=== PATIENT | female | born 1985 | race African-American/Black ===

== ENCOUNTER 2016-03-15 07:45 | Emergency (ER) | payer OTHER ==
[2016-03-15 08:14] VITALS: BP 100/65
--- NOTE | 2016-03-15 08:23 | ED ---
Abdominal Pain/Female - HPI Summary HPI Summary: 31yo female presents with vaginal cramping that started a week ago, and had a home test 3-4 days ago which was positive. , child is now 18m old. She additionally had an years ago which resulted in vaginal scar tissue. She had a secondary to the scar tissue with her child 18m ago. Patient with slightly reddish tinted urine with some hesitancy and dysuria. No vaginal bleeding or discharge. She has some lower abdominal cramping. + nausea and vomiting about once or twice a day. Have had difficulty with eating, but has been taking some fluids. History of . Patient is A+ blood type. - History of Current Complaint Chief Complaint: EDAbdPain Stated Complaint: ??WKS PREG/CRAMPING Pain Intensity: 9 Allergies/Adverse Reactions: Allergies Allergy/AdvReac Type Severity Reaction Status Date / Time Erythromycin Allergy Unknown Rash Verified 03/14/16 14:30 PMH/Surg Hx/FS Hx/Imm Hx Previously Healthy: Yes Endocrine/Hematology History: Denies: Hx Diabetes Cardiovascular History: Denies: Hx Hypertension History: Denies: Hx Renal Disease Psychiatric History: Reports: Hx Anxiety - severe,not taking meds,sees TCMHD, Hx Depression, Hx Community Mental Health Tx - TCMH - Not currently, Other Psychiatric Issues/Disorders - HX Mental health issues Denies: Hx Attention Deficit Hyperactivity Disorder, Hx Eating Disorder, Hx Panic Disorder, Hx Post Traumatic Stress Disorder, Hx Inpatient Treatment, Hx Schizophrenia, Hx Bipolar Disorder, Hx Suicide Attempt, Hx of Violent Episodes Against Others, Hx Substance Abuse - Surgical History Surgery Procedure, Year, and Place: - Immunization History Date of Tetanus Vaccine: not up to date Infectious Disease History: Yes Infectious Disease History: Denies: Hx Clostridium Difficile, Hx Hepatitis, Hx Human Immunodeficiency Virus (HIV), Hx of Known/Suspected MRSA, Hx Shingles, Hx Tuberculosis, Hx Known/ Suspected VRE, Hx Known/Suspected VRSA, History Other Infectious Disease, Traveled Outside the [place] in Last 30 Days - Family History Known Family History: Positive: Other - migraines Negative: Cardiac Disease Family History: R & n/C - Social History Lives: Alone Alcohol Use: None Hx Substance Use: Yes Substance Use Type: Reports: Marijuana Substance Use Comment - Amount & Last Used: last 4 days ago Hx Tobacco Use: Yes Smoking Status (MU): Light Every Day Tobacco Smoker Have You Smoked in the Last Year: No Review of Systems Positive: Vomiting, Nausea Positive: dysuria All Other Systems Reviewed And Are Negative: Yes Physical Exam - Summary Physical Exam Summary: GENERAL: Well appearing, No acute distress, well nourished. HEENT: Head atraumatic/normocephalic, EOMI/JOSE JUAN, conjunctiva clear, TMs appear without erythema/bulging, Nose appears without congestion or drainage, Throat uvula midline without exudates, erythema, or tonsillar edema. NECK: Supple with normal range of motion during conversation. CARDIAC: RRR without murmur, rub or gallop LUNGS: Clear to auscultation without wheezing, rales or rhonchi. Normal respiratory effort. Breath sounds are symmetrical and equal. ABDOMEN: Abdomen is soft and non-tender. No cva tenderness PELVIC: Normal external genitalia. Vagina without mass or lesion. No discharge or bleeding. Cervix closed. No CMT. Uterus non tender without mass. Adnexa non tender without mass. MUSCULOSKELETAL: Moves all extremities well. There is no peripheral edema. Neg homans. SKIN: Warm and dry, skin color reflects adequate perfusion. NEUROLOGICAL: Patient is alert and appropriate. Cranial nerves are grossly intact. PSYCHIATRIC: Appropriate affect. Vital Signs On Initial Exam: Initial Vitals Temp Pulse Resp BP Pulse Ox 98.0 F 63 16 100/65 100 03/15/16 07:47 03/15/16 07:47 03/15/16 07:47 03/15/16 07:47 03/15/16 07:47 Diagnostics - Vital Signs Vital Signs Temp Pulse Resp BP Pulse Ox 03/15/16 07:47 98.0 F 63 16 100/65 100 - Laboratory Result Diagrams: 03/15/16 08:52 03/15/16 08:52 Lab Statement: Any lab studies that have been ordered have been reviewed, and results considered in the medical decision making process. - Ultrasound No standard instances Ultrasound Interpretation: Positive (See Comments) - single live intrauterine gestation with crown-rump length yielding a gestational age of 6weeks and 2 days. Likely very small subchorionic hemorrhage measuring 2mm in thickness Incidentally noted is at least on engorged left periuterine vein measuing 1 cm in diameter. 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 Ultrasound Interpretation Completed By: Radiologist Re-Evaluation - Re-Evaluation First Eval Change: Improved - No complaints, but wants to leave immediately after her u/s. Discussed the importance of pelvic exam, labs and u/s result from radiologist. Second Eval Change: Unchanged - Patient requesting to leave p/t labwork and u/s results. Discussed importance of waiting for results. Patient will wait, but is very anxious to leave. Abdominal Pain Fem Course/Dx - Course Course Of Treatment: 31yo female presents with vaginal cramping and a positive home test. She denies any vaginal bleeding. Labs with elevated hcg c /w , but otherwise remarkable only for some wbc/rbc in urine. Patient with some UTI symptoms, therefore discussed treatment with macrobid pending cultures. U/s showed 6w2d IUP, 2mm subchorionic hemorrhage. Discussed with Dr. Sharma who stated f/u with ob is appropriate and no need to call them at this time. She has an established relationship with Dr. Fiore and would like to follow with him. Pelvic rest recommended at this time. No other treatment available for findings explained to patient. She asked if this finding could harm her , answered that this can increase the risk of miscarriage but often resolve. She should follow up with OB. Patient to return if fever, flank pain, unable to take and retain, vaginal discharge/bleeding, increased abdominal pain, or with any problems/concerns. Patient voiced understanding. - Diagnoses Provider Diagnoses: , Subchorionic hemorrhage in first trimester, UTI (urinary tract infection) - Provider Notifications Discussed Care Of Patient With: Dr. Sharma Discharge - Discharge Plan Condition: Good Disposition: HOME Prescriptions: Nitrofurantoin Monohyd Macro [Macrobid] 100 mg PO BID #14 cap Vitamin TAB* 1 tab PO DAILY #30 tab Referrals: Lazaro Fiore MD [Medical Doctor] - 2 Days No Primary Care Phys,NOPCP [Primary Care Provider] - Additional Instructions: Please follow up with the senior sql developer. Please return if you have abdominal pain, vaginal discharge or bleeding. Please return with fever/chills or any problems , concerns or worsening symptoms. Pelvic rest is recommended at this time as your u/s showed an abnormality as discussed.
[2016-03-15] MEDS ORDERED: NS 0.9% 1000 ML* 1,000 ML IV ONE (08:30)
[2016-03-15 08:42] LABS: Urine Bacteria Absent (Absent); Urine Bilirubin Negative (Negative); Urine Glucose Negative (Negative); Urine Nitrite Negative (Negative)
[2016-03-15 09:02] LABS: Hematocrit 44 % (35-47); Hemoglobin 14.5 g/dl (12.0-16.0); Mean Corpuscular HGB Conc 33 g/dl (31-36); Mean Corpuscular Hemoglobin 28 pg (27-31); Mean Corpuscular Volume 85 fL (80-97); Mean Platelet Volume 8 um3 (7.4-10.4); Red Blood Count 5.23 10^6/ul (4.0-5.4); Red Cell Distribution Width 14 % (10.5-15)
[2016-03-15 09:17] LABS: Albumin 4.4 g/dL (3.2-5.2); BUN/Creatinine Ratio 17.3 (8-20); Calcium 9.7 mg/dL (8.6-10.3); EGFR African American 104.7 (>60); EGFR Non-African American 81.4 (>60); Globulin 3.3 g/dL (2-4); Potassium 3.6 mmol/L (3.5-5.0); Total Bilirubin 0.7 mg/dL (0.2-1.0); Total Protein 7.7 g/dL (6.4-8.9)
--- NOTE | 2016-03-15 10:24 | RAD ---
HISTORY: Abdominal cramping in a female. The last menstrual period is unknown. COMPARISONS: No previous ultrasounds from this . CT abdomen pelvis dated February 07, 2016 demonstrates an enlarged and refluxing left ovarian vein communicating with mild to moderate left pelvic varices. TECHNIQUE: Multiple transverse and longitudinal ultrasound images were obtained of the pelvis using grayscale, color flow, spectral and M-mode sonographic imaging. FINDINGS: UTERUS: The uterus is normal in shape, size, contour, and echotexture. GESTATION: There is a single live intrauterine gestation. The crown-rump length measures 0.45 cm yielding a gestational age of 6 weeks and 2 days. The mean gestational sac diameter measures 1.97 centimeters yielding a gestational age of 7 weeks and 0 days. The heart rate is 166 bpm. There is a small rim measuring 2 mm in thickness of anechoic and avascular subchorionic fluid. CUL-DE-SAC: There is no free fluid within the cul-de-sac. Incidentally noted in the left periuterine area is an engorged vein measuring up to 1 cm in diameter. RIGHT OVARY: The right ovary measures 4.2 x 2.3 x 2.4 cm. Within the right ovary the corpus luteum measures 2.5 x 2.1 x 1.6 cm. LEFT OVARY: The left ovary measures 2.2 x 2.5 x 1.6 cm. IMPRESSION: 1. Single live intrauterine gestation with a crown-rump length yielding a gestational age of 6 weeks and 2 days. 2. Likely very small subchorionic hemorrhage measuring 2 mm in thickness. 3. Incidentally noted is at least one engorged left periuterine vein measuring 1 cm in diameter. 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
--- NOTE | 2016-03-16 12:11 | PN ---
Addendum entered and electronically signed by Amol Jose PA 03/16/16 15:03: Progress Note - Progress Note Note: Treatment plan was based on information from Up-to-date regarding "trichomonas first trimester" and patient was instructed to follow-up with her BROOCH AND BRACELET MAKER at her visit with this ED. The patient was called again and again the phone was not answered. A letter will be sent to the listed residence regarding her results and the prescription awaiting pick-up at her pharmacy. Dr. Tiffanie Perera was consulted. Original Note: Progress Note - Progress Note Note: Patient was called and when no one answered, a message was left for the patient to call back regarding her positive Trichomanas and gardnerella results. A prescription for Metronidazole 2g was sent to her pharmacy. If patient does not return my call, I will have the launch steward sent a letter to her.
== END 2016-03-15 11:15 | disposition home or self-care (01) ==
LOC: ED 07:45
DX: O20.8 Other hemorrhage in early pregnancy (principal); N39.0 Urinary tract infection, site not specified; R11.2 Nausea with vomiting, unspecified; R10.9 Unspecified abdominal pain; R30.0 Dysuria
CPT/HCPCS: 36415; 76817; 80053; 81003; 81015; 84702; 85025; 87086; 87480; 87491; 87510; 87591; 87660; 96360; 99282

== ENCOUNTER 2016-03-26 11:13 | Emergency (ER) | payer OTHER ==
[2016-03-26 11:46] VITALS: BP 102/50
[2016-03-26 12:26] LABS: Hematocrit 40 % (35-47); Hemoglobin 13.1 g/dl (12.0-16.0); Mean Corpuscular HGB Conc 33 g/dl (31-36); Mean Corpuscular Hemoglobin 28 pg (27-31); Mean Corpuscular Volume 84 fL (80-97); Mean Platelet Volume 8 um3 (7.4-10.4); Red Blood Count 4.74 10^6/ul (4.0-5.4); Red Cell Distribution Width 14 % (10.5-15); White Blood Count 9.1 10^3/ul (3.5-10.8)
[2016-03-26 12:40] LABS: Albumin 3.9 g/dL (3.2-5.2); BUN/Creatinine Ratio 11.9 (8-20); Calcium 9.3 mg/dL (8.6-10.3); EGFR African American 130.4 (>60); EGFR Non-African American 101.4 (>60); Globulin 2.7 g/dL (2-4); Magnesium 1.8 mg/dL (1.9-2.7); Potassium 3.9 mmol/L (3.5-5.0); Total Bilirubin 0.4 mg/dL (0.2-1.0); Total Protein 6.6 g/dL (6.4-8.9)
--- NOTE | 2016-03-26 13:02 | ED ---
Syncope/Near Syncope - HPI Summary HPI Summary: Patient is 9 weeks . She did not eat or drink this morning, and became light headed on the bus. She "passed out" hitting her head a she fell. She regained consciousness quickly according to bystanders. She denies vomiting, amnesia or neck pain. She bumped her head on a seat but did not suffer and abrasion or laceration. She denies CP, SOB, dizziness, vision changes, fever, chills, or nausea. She does not have a history of syncope, heart condition or recent illness. She has become lightheaded when standing since she has been and admits her WORKDAY MANAGER has told her to eat and drink more to avoid lightheadedness. - History Of Current Complaint Chief Complaint: EDSyncope Time Seen by Provider: 03/26/16 11:23 Hx Obtained From: Patient Onset/Duration: Sudden Onset Timing: Intermittent Episode Lasting Context: Witnessed Activity At Onset: Exertion - stood up Associated Head Trauma: Yes Aggravating Factor(s): Nothing Alleviating Factor(s): Spontaneous Resolution Associated Signs And Symptoms: Decreased Oral Intake, Lightheadedness Frequency: Episodes x___ - 1 - Allergies/Home Medications Allergies/Adverse Reactions: Allergies Allergy/AdvReac Type Severity Reaction Status Date / Time Erythromycin Allergy Unknown Rash Verified 03/14/16 14:30 PMH/Surg Hx/FS Hx/Imm Hx Endocrine/Hematology History: Denies: Hx Diabetes Cardiovascular History: Denies: Hx Hypertension History: Denies: Hx Renal Disease Psychiatric History: Reports: Hx Anxiety - severe,not taking meds,sees TCMHD, Hx Depression, Hx Community Mental Health Tx - TCMH - Not currently, Other Psychiatric Issues/Disorders - HX Mental health issues Denies: Hx Attention Deficit Hyperactivity Disorder, Hx Eating Disorder, Hx Panic Disorder, Hx Post Traumatic Stress Disorder, Hx Inpatient Treatment, Hx Schizophrenia, Hx Bipolar Disorder, Hx Suicide Attempt, Hx of Violent Episodes Against Others, Hx Substance Abuse - Surgical History Surgery Procedure, Year, and Place: - Immunization History Date of Tetanus Vaccine: not up to date Infectious Disease History: No Infectious Disease History: Denies: Hx Clostridium Difficile, Hx Hepatitis, Hx Human Immunodeficiency Virus (HIV), Hx of Known/Suspected MRSA, Hx Shingles, Hx Tuberculosis, Hx Known/ Suspected VRE, Hx Known/Suspected VRSA, History Other Infectious Disease, Traveled Outside the [place] in Last 30 Days - Family History Known Family History: Positive: None, Other - migraines Negative: Cardiac Disease Family History: R & n/C - Social History Occupation: Unemployed Lives: With Family Alcohol Use: None Hx Substance Use: Yes Substance Use Type: Reports: Marijuana Substance Use Comment - Amount & Last Used: last 4 days ago Hx Tobacco Use: Yes Smoking Status (MU): Light Every Day Tobacco Smoker Have You Smoked in the Last Year: No Cessation Counseling: Patient Advised to Stop Review of Systems Negative: Fever, Chills Negative: Photophobia, Blurred Vision Negative: Ear Ache, Nasal Discharge Negative: Chest Pain Negative: Shortness Of Breath Negative: Vomiting Negative: Bruising Negative: Headache All Other Systems Reviewed And Are Negative: Yes Physical Exam Triage Information Reviewed: Yes Vital Signs On Initial Exam: Initial Vitals Temp Pulse Resp BP Pulse Ox 98.5 F 67 16 102/50 100 03/26/16 11:15 03/26/16 11:15 03/26/16 11:15 03/26/16 11:15 03/26/16 11:15 Vital Signs Reviewed: Yes Appearance: Positive: Well-Appearing, No Pain Distress, Well-Nourished Skin: Positive: Warm, Skin Color Reflects Adequate Perfusion, Dry, Soft - no laceration, abrasion or hematomo noted on forehead Head/Face: Positive: Normal Head/Face Inspection Eyes: Positive: EOMI, RENEA, Conjunctiva Clear ENT: Positive: Hearing grossly normal, Pharynx normal, TMs normal Neck: Positive: Supple Respiratory/Lung Sounds: Positive: Clear to Auscultation, Breath Sounds Present Cardiovascular: Positive: RRR Abdomen Description: Positive: Nontender, Soft. Negative: CVA Tenderness (R), CVA Tenderness (L) Bowel Sounds: Positive: Present Musculoskeletal: Positive: Strength/ROM Intact. Negative: Edema Left, Edema Right Neurological: Positive: Sensory/Motor Intact, Alert, Oriented to Person Place, Time, CN Intact II-III, NV Bundle Intact Distally, Normal Gait Psychiatric: Positive: Affect/Mood Appropriate AVPU Assessment: Alert Diagnostics - Vital Signs Vital Signs Temp Pulse Resp BP Pulse Ox 03/26/16 11:15 98.5 F 67 16 102/50 100 - Laboratory Lab Results: Lab Results 03/26/16 03/26/16 03/26/16 Range/Units 12:03 12:03 12:03 WBC 9.1 (3.5-10.8) 10^3/ul RBC 4.74 (4.0-5.4) 10^6/ul Hgb 13.1 (12.0-16.0) g/dl Hct 40 (35-47) % MCV 84 (80-97) fL MCH 28 (27-31) pg MCHC 33 (31-36) g/dl RDW 14 (10.5-15) % Plt Count 216 (150-450) 10^3/ul MPV 8 (7.4-10.4) um3 Neut % (Auto) 69.1 (38-83) % Lymph % (Auto) 24.2 L (25-47) % [place] % (Auto) 6.0 (1-9) % Eos % (Auto) 0.5 (0-6) % Baso % (Auto) 0.2 (0-2) % Absolute Neuts (auto) 6.3 (1.5-7.7) 10^3/ul Absolute Lymphs (auto) 2.2 (1.0-4.8) 10^3/ul Absolute Monos (auto) 0.5 (0-0.8) 10^3/ul Absolute Eos (auto) 0 (0-0.6) 10^3/ul Absolute Basos (auto) 0 (0-0.2) 10^3/ul Absolute Nucleated RBC 0 10^3/ul Nucleated RBC % 0 Sodium 133 (133-145) mmol/L Potassium 3.9 (3.5-5.0) mmol/L Chloride 103 (101-111) mmol/L Carbon Dioxide 27 (22-32) mmol/L Anion Gap 3 (2-11) mmol/L BUN 8 (6-24) mg/dL Creatinine 0.67 (0.51-0.95) mg/dL Est GFR ( Amer) 130.4 (>60) Est GFR (Non-Af Amer) 101.4 (>60) BUN/Creatinine Ratio 11.9 (8-20) Glucose 81 (70-100) mg/dL Lactic Acid 0.7 (0.5-2.0) mmol/L Calcium 9.3 (8.6-10.3) mg/dL Magnesium 1.8 L (1.9-2.7) mg/dL Total Bilirubin 0.40 (0.2-1.0) mg/dL AST 13 (13-39) U/L ALT 9 (7-52) U/L Alkaline Phosphatase 44 (34-104) U/L Troponin I Pending Total Protein 6.6 (6.4-8.9) g/dL Albumin 3.9 (3.2-5.2) g/dL Globulin 2.7 (2-4) g/dL Albumin/Globulin Ratio 1.4 (1-3) TSH Pending Result Diagrams: 03/26/16 12:03 03/26/16 12:03 Lab Statement: Any lab studies that have been ordered have been reviewed, and results considered in the medical decision making process. - EKG No standard instances Cardiac Rate: NL EKG Rhythm: Sinus Rhythm ST Segment: Normal Ectopy: None Course/Dx Course Of Treatment: Patient presented saying she needed to leave soon to go pick her son. After her results came back and I was discussing her plan of care , she was very upset because heart tones were not obtained. I explained to her that these would not be detectable until about week 14 of her . She was not happy with any of the explainations given regarding her care and said she wanted a second opinion. I offered to get another provider to speak with her, and she refused. - Diagnoses Differential Diagnosis/HQI/PQRI: Positive: Hyperventilation, Hypovolemia, Pulmonary Embolism, Seizure, Vasovagal Episode Provider Diagnoses: Vaso vagal episode Discharge - Discharge Plan Condition: Stable Disposition: HOME Patient Education Materials: Syncope (ED) Referrals: [facility] [place] [facility]ERR[facility] [Outside] Additional Instructions: Please call the number provided to establish care with a regular provider for follow-up. Make sure you drink extra fluids, especially water, and eat regular meals. Return to the emergency department if your symptoms worsen.
[2016-03-26 13:08] LABS: TSH (Thyroid Stimulating Horm) 0.49 mcIU/mL (0.34-5.60)
== END 2016-03-26 13:30 | disposition home or self-care (01) ==
LOC: ED 11:13
DX: R55 Syncope and collapse (principal)
CPT/HCPCS: 36415; 80053; 83605; 83735; 84443; 84484; 85025; 93005; 99282

== ENCOUNTER 2016-06-24 20:36 | Emergency (ER) | payer OTHER ==
[2016-06-24 20:54] VITALS: BP 130/89
[2016-06-24] MEDS ORDERED: Ketorolac INJ* 30 MG/ML 1 ML VIAL IM ONE (22:14)
[2016-06-24] MEDS ORDERED: Amoxicillin CAP* 250 MG PO ONE (22:15)
--- NOTE | 2016-06-24 22:19 | ED ---
Throat Pain/Nasal Congestion - HPI Summary HPI Summary: 31 female presents with complaints of a dental infection that is radiating into the left side of her head/face that started a couple of days ago and has worsened since. 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 She is supposed to have them removed however she hasn't because she is scared. She states when she starts to get a dental infection the same type of pain begins. She has taken ibuprofen with little relief. States in the past it helped but it hasn't helped much this time. Pain is constant however worsens with chewing and talking. She points to pain at her right, TMJ, cheek and temporal head. Denies fever/chills, nausea, vomiting, difficulty breathing and recent trauma or injury. Denies discharge, swelling, redness and any visible abscess. - History of Current Complaint Chief Complaint: EDDentalPain Time Seen by Provider: 06/24/16 21:58 Hx Obtained From: Patient Onset/Duration: Sudden Onset, Lasting Days, Worse Since Severity: Moderate Cough: None - Allergies/Home Medications Allergies/Adverse Reactions: Allergies Allergy/AdvReac Type Severity Reaction Status Date / Time Erythromycin Allergy Unknown Rash Verified 06/24/16 20:59 PMH/Surg Hx/FS Hx/Imm Hx Endocrine/Hematology History: Denies: Hx Diabetes Cardiovascular History: Denies: Hx Hypertension History: Denies: Hx Renal Disease Psychiatric History: Reports: Hx Anxiety - severe,not taking meds,sees TCMHD, Hx Depression, Hx Community Mental Health Tx - TCMH - Not currently, Other Psychiatric Issues/Disorders - HX Mental health issues Denies: Hx Attention Deficit Hyperactivity Disorder, Hx Eating Disorder, Hx Panic Disorder, Hx Post Traumatic Stress Disorder, Hx Inpatient Treatment, Hx Schizophrenia, Hx Bipolar Disorder, Hx Suicide Attempt, Hx of Violent Episodes Against Others, Hx Substance Abuse - Surgical History Surgery Procedure, Year, and Place: - Immunization History Date of Tetanus Vaccine: not up to date Immunizations Up to Date: Yes Infectious Disease History: No Infectious Disease History: Denies: Hx Clostridium Difficile, Hx Hepatitis, Hx Human Immunodeficiency Virus (HIV), Hx of Known/Suspected MRSA, Hx Shingles, Hx Tuberculosis, Hx Known/ Suspected VRE, Hx Known/Suspected VRSA, History Other Infectious Disease, Traveled Outside the [place] in Last 30 Days - Family History Known Family History: Positive: None, Other - migraines Negative: Cardiac Disease Family History: R & n/C - Social History Alcohol Use: None Hx Substance Use: Yes Substance Use Type: Reports: Marijuana Substance Use Comment - Amount & Last Used: last 4 days ago Hx Tobacco Use: Yes Smoking Status (MU): Light Every Day Tobacco Smoker Have You Smoked in the Last Year: No Review of Systems Constitutional: Negative Positive: Dental Pain Cardiovascular: Negative Respiratory: Negative Musculoskeletal: Negative Skin: Negative Positive: Headache Psychological: Normal All Other Systems Reviewed And Are Negative: Yes Physical Exam Triage Information Reviewed: Yes Vital Signs On Initial Exam: Initial Vitals Temp Pulse Resp BP Pulse Ox 98.6 F 74 16 130/89 100 06/24/16 20:51 06/24/16 20:51 06/24/16 20:51 06/24/16 20:51 06/24/16 20:51 follow up with pcp on slightly elevated BP, although patient is in pain Vital Signs Reviewed: Yes Appearance: Positive: Well-Appearing, No Pain Distress, Well-Nourished Skin: Positive: Warm, Skin Color Reflects Adequate Perfusion, Dry, Other - no sign of abscess present Head/Face: Positive: Normal Head/Face Inspection, TMJ Tenderness - left side. Negative: Temporal Artery Tenderness, Scalp, Cephalohematoma Eyes: Positive: Normal, Conjunctiva Clear ENT: Positive: Normal ENT inspection, Hearing grossly normal, Pharynx normal, TMs normal, Dental tenderness - upper molar right side. Negative: Tonsillar swelling, Tonsillar exudate, Trismus, Muffled/hoarse voice Dental: Positive: Percussion Tenderness @, Gross Decay/Caries @ - left upper molar, Dental Fracture @ - left upper molar, Other - no visualization of abscess or cellulitis.. Negative: Abscess @ Neck: Positive: Supple, Nontender, No Lymphadenopathy Respiratory/Lung Sounds: Positive: Clear to Auscultation, Breath Sounds Present Cardiovascular: Positive: Normal, RRR, Pulses are Symmetrical in both Upper and Lower Extremities Bowel Sounds: Positive: Present Musculoskeletal: Positive: Normal, Strength/ROM Intact Neurological: Positive: Normal, Sensory/Motor Intact, Alert, Oriented to Person Place, Time Psychiatric: Positive: Normal Diagnostics - Vital Signs Vital Signs Temp Pulse Resp BP Pulse Ox 06/24/16 20:54 98.6 F 66 15 130/89 100 06/24/16 20:51 98.6 F 74 16 130/89 100 - Laboratory Lab Statement: Any lab studies that have been ordered have been reviewed, and results considered in the medical decision making process. Re-Evaluation - Re-Evaluation First Eval Re-Evaluation Time: 22:40 Change: Improved - patient was feeling much better after toradol EENT Course/Dx - Course Course Of Treatment: given toradol and first dose of amoxicillin while in ED. Also given lolicaine to apply to area causing pain. Patient felt better. Given amoxicillin and ibuprofen to take at home. follow up with dentist to prevent recurrent and worsening issues, also to speak with dentist about TMD. aware of worsening signs and symptoms - Differential Diagnoses Differential Diagnoses: Dental Abscess, Dental Caries, Fractured Tooth, Odontogenic Pain, TMJ Syndrome - Diagnoses Provider Diagnoses: Pain, dental, Fractured tooth, Chronic dental infection Discharge - Discharge Plan Condition: Stable Disposition: HOME Prescriptions: Amoxicillin CAP* [Amoxicillin 500 MG CAP*] 500 mg PO Q12H #19 cap Ibuprofen TAB* [Motrin TAB* 800 MG] 800 mg PO Q6H #30 tab Patient Education Materials: Toothache (ED) Referrals: No Primary Care Phys,NOPCP [Primary Care Provider] - [facility] [place] [facility] [Outside] Additional Instructions: It is imperative for you to go to your dentist and have the problematic teeth removed. Take ibuprofen with food for pain and inflammation. Take prescribed antibiotic as directed until entire dose is finished. Take probiotic or eat lithuanian yogurt to replenish normal yun while taking antibiotics. Swish with salt water and drink plenty of fluids. Warm compresses or ice at area of pain for relief. Follow up with pcp. If symptoms worsen or new symptoms develop please seek medical attention.
== END 2016-06-24 22:52 | disposition home or self-care (01) ==
LOC: ED 20:36
DX: K03.81 Cracked tooth (principal); K04.7 Periapical abscess without sinus; K08.89 Other specified disorders of teeth and supporting structures; R51 Headache; F17.210 Nicotine dependence, cigarettes, uncomplicated
CPT/HCPCS: 96372; 99282; A9270-GY; J1885

== ENCOUNTER 2016-07-06 11:12 | Emergency (ER) | payer OTHER ==
[2016-07-06 11:23] VITALS: BP 117/79
--- NOTE | 2016-07-06 12:48 | UC ---
[facility] HPI - HPI Summary HPI Summary: Patient is currently being treated for mutiple infected teeth, recently started on PCN. she is in alot of pain, has been taking ibuprofen 800 mg without good relief. she is a smoker - History of Current Complaint Hx Obtained From: Patient Hx Last Menstrual Period: 2 wks ago ?: No Onset/Duration: Sudden Onset, Lasting Days Severity: Severe Aggravating: Chewing Alleviating: Nothing Related History: Previous Dental Care on Same Tooth, Swelling <Silke Lewis - Last Filed: 07/06/16 12:41> <Tiffanie Perear - Last Filed: 07/06/16 12:50> - History of Current Complaint Chief Complaint: UCDentalProblem Stated Complaint: DENTAL PAIN Time Seen by Provider: 07/06/16 12:24 - Allergies/Home Medications Allergies/Adverse Reactions: Allergies Allergy/AdvReac Type Severity Reaction Status Date / Time Erythromycin Allergy Unknown Rash Verified 07/06/16 11:24 PMH/Surg Hx/FS Hx/Imm Hx Previously Healthy: Yes Endocrine History Of: Denies: Diabetes Cardiovascular History Of: Denies: Hypertension GI/ History Of: Denies: Renal Disease Psychological History Of: Reports: Anxiety - severe,not taking meds,sees TCMHD, Depression Denies: Bipolar Disorder, Schizophrenia - Surgical History Surgical History: Yes Surgery Procedure, Year, and Place: - Family History Known Family History: Positive: None, Other - migraines Negative: Cardiac Disease Family History: R & n/C - Social History Alcohol Use: None Substance Use Type: None Substance Use Comment - Amount & Last Used: last 4 days ago Smoking Status (MU): Light Every Day Tobacco Smoker Have You Smoked in the Last Year: No When Did the Patient Quit Smoking/Using Tobacco: 2 yrs ago Household Exposure Type: Cigarettes - Immunization History Most Recent Influenza Vaccination: 12/27/13 Most Recent Tetanus Shot: unknown Most Recent Pneumonia Vaccination: none <Silke Lewis - Last Filed: 07/06/16 12:41> Review of Systems Constitutional: Negative Skin: Negative Eyes: Negative ENT: Dental Pain Respiratory: Negative Cardiovascular: Negative Gastrointestinal: Negative Genitourinary: Negative Motor: Negative Neurovascular: Negative Musculoskeletal: Negative Neurological: Negative Psychological: Negative All Other Systems Reviewed And Are Negative: Yes <Silke Lewis - Last Filed: 07/06/16 12:41> Physical Exam Triage Information Reviewed: Yes Appearance: Well-Nourished, Ill-Appearing, Pain Distress Vital Signs: Initial Vital Signs Temp 97.3 F 07/06/16 11:18 Pulse 72 07/06/16 11:18 Resp 12 07/06/16 11:18 BP 117/79 07/06/16 11:18 Pulse Ox 100 07/06/16 11:18 Vital Signs Reviewed: Yes Eye Exam: Normal Eyes: Positive: Conjunctiva Clear ENT: Positive: Pharyngeal erythema, TMs normal Dental: Positive: Gross Decay/Caries @, Dental Fracture @, Cellulitis @ - of lower left gums Neck exam: Normal Neck: Positive: Supple, Nontender, Enlarged Nodes @ - left submandibular Respiratory Exam: Normal Respiratory: Positive: Chest non-tender, Lungs clear, Normal breath sounds Cardiovascular Exam: Normal Cardiovascular: Positive: RRR, No Murmur, Pulses Normal Abdominal Exam: Normal Abdomen Description: Positive: Nontender, No Organomegaly, Soft Bowel Sounds: Positive: Present Musculoskeletal Exam: Normal Musculoskeletal: Positive: Strength Intact, ROM Intact, No Edema Neurological Exam: Normal Neurological: Positive: Alert, Muscle Tone Normal Psychological Exam: Normal Skin Exam: Normal <Silke Lewis - Last Filed: 07/06/16 12:41> Vital Signs: Initial Vital Signs Temp 97.3 F 07/06/16 11:18 Pulse 72 07/06/16 11:18 Resp 12 07/06/16 11:18 BP 117/79 07/06/16 11:18 Pulse Ox 100 07/06/16 11:18 <Tiffanie Perera - Last Filed: 07/06/16 12:50> Dental Complaint Course/Dx - Course Course Of Treatment: hx obtained, exam performed, meds reviewed, mutiple dental caries and broken teeth, a few days of pain medication given. educated about mouth rinses and warm compresses. - Differential Dx/Diagnosis Differential Diagnosis/Dx: Dental Abscess, Dental Caries, Peridontic Disease, Tonsillitis Provider Diagnoses: multiple fractured tooth. dental infection. mouth pain <Silke Lewis - Last Filed: 07/06/16 12:41> Discharge <Silke Lewis - Last Filed: 07/06/16 12:41> <Tiffanie Perera - Last Filed: 07/06/16 12:50> - Discharge Plan Condition: Stable Disposition: HOME Prescriptions: HYDROcodone/ACETAMIN 5-325 MG* [[place] 5-325 TAB*] 1 tab PO Q4H PRN #18 tab MDD 6 tabs PRN Reason: Pain Patient Education Materials: Dental Abscess (ED) Referrals: No Primary Care Phys,NOPCP [Primary Care Provider] - Additional Instructions: take the pain meds as prescribed. Continue with the ibuprofen as prescribed. Coconut mouth rinses multiple times a day. Attestation Statement User Type: Provider <Tiffanie Perera - Last Filed: 07/06/16 12:50>
== END 2016-07-06 12:50 | disposition home or self-care (01) ==
LOC: UCEAST 11:12
DX: K03.81 Cracked tooth (principal); F17.210 Nicotine dependence, cigarettes, uncomplicated; F41.9 Anxiety disorder, unspecified; F32.9 Major depressive disorder, single episode, unspecified; K04.7 Periapical abscess without sinus; K13.79 Other lesions of oral mucosa; Z88.3 Allergy status to other anti-infective agents
CPT/HCPCS: 99212; G0463

== ENCOUNTER 2016-07-14 18:57 | Emergency (ER) | payer OTHER ==
[2016-07-14 19:12] VITALS: BP 141/95
== END 2016-07-14 19:45 | disposition left against medical advice (07) ==
LOC: ED 18:57
DX: K08.89 Other specified disorders of teeth and supporting structures (principal); Z53.21 Procedure and treatment not carried out due to patient leaving prior to being seen by health care provider

== ENCOUNTER 2016-07-15 07:24 | Emergency (ER) | payer OTHER ==
[2016-07-15] MEDS ORDERED: oxyCODONE/Acetamin 5/325 MG* TAB PO ONE (07:53)
[2016-07-15 08:01] VITALS: BP 122/78
--- NOTE | 2016-07-15 18:17 | ED ---
Phillip Snyder Billy, scribed for Roberto Carlos Sharma MD on 07/15/16 at 0753 . Complex/Multi-Sys Presentation - HPI Summary HPI Summary: \Patient is a 31 year-old female coming to [facility] for evaluation of constant left -sided dental pain since yesterday. She states that she had visited [facility] yesterday to have some teeth removed, but the procedure was not completed and no teeth were extracted. She states that her pain is mildly improved with cold compresses. She states that she sometimes will taste blood coming from the site, but denies any fever. She has an appointment to see an oral surgeon in 2 weeks. Her dentist prescribed her amoxicillin yesterday. - History Of Current Complaint Chief Complaint: EDDentalPain Time Seen by Provider: 07/15/16 07:39 Hx Obtained From: Patient Onset/Duration: Gradual Onset Timing: Constant Severity Currently: Moderate Severity Initially: Moderate Location: Pain At: - left-sided dental pain Aggravating Factor(s): none Alleviating Factor(s): cold compresses Associated Signs And Symptoms: Negative: Fever - Allergies/Home Medications Allergies/Adverse Reactions: Allergies Allergy/AdvReac Type Severity Reaction Status Date / Time Erythromycin Allergy Unknown Rash Verified 07/14/16 19:12 PMH/Surg Hx/FS Hx/Imm Hx Endocrine/Hematology History: Denies: Hx Diabetes Cardiovascular History: Denies: Hx Hypertension History: Denies: Hx Renal Disease Psychiatric History: Reports: Hx Anxiety - severe,not taking meds,sees TCMHD, Hx Depression, Hx Community Mental Health Tx - TCMH - Not currently, Other Psychiatric Issues/Disorders - HX Mental health issues Denies: Hx Attention Deficit Hyperactivity Disorder, Hx Eating Disorder, Hx Panic Disorder, Hx Post Traumatic Stress Disorder, Hx Inpatient Treatment, Hx Schizophrenia, Hx Bipolar Disorder, Hx Suicide Attempt, Hx of Violent Episodes Against Others, Hx Substance Abuse - Surgical History Surgery Procedure, Year, and Place: - Immunization History Date of Tetanus Vaccine: not up to date Infectious Disease History: Denies: Hx Clostridium Difficile, Hx Hepatitis, Hx Human Immunodeficiency Virus (HIV), Hx of Known/Suspected MRSA, Hx Shingles, Hx Tuberculosis, Hx Known/ Suspected VRE, Hx Known/Suspected VRSA, History Other Infectious Disease, Traveled Outside the [place] in Last 30 Days - Family History Known Family History: Positive: Other - migraines Negative: Cardiac Disease - Social History Alcohol Use: None Hx Substance Use: Yes Substance Use Type: Reports: None Substance Use Comment - Amount & Last Used: last 4 days ago Hx Tobacco Use: Yes Smoking Status (MU): Light Every Day Tobacco Smoker Have You Smoked in the Last Year: No Review of Systems Negative: Fever, Chills Negative: Erythema Positive: Dental Pain. Negative: Sore Throat Negative: Chest Pain Negative: Shortness Of Breath, Cough Negative: Abdominal Pain, Vomiting, Nausea Negative: dysuria, hematuria Negative: Myalgia, Edema Negative: Rash All Other Systems Reviewed And Are Negative: Yes Physical Exam - Summary Physical Exam Summary: Constitutional: Well-developed, Well-nourished, Alert. (-) Distressed Skin: Warm, Dry HENT: Normocephalic; Atraumatic. Dental: First left bottom molar is fractured, no surrounding abscess. No trismus. No Jordin's angina. Eyes: Conjunctiva normal Neck: Musculoskeletal ROM normal neck. (-) JVD, (-) Stridor, (-) Tracheal deviation Cardio: Rhythm regular, rate normal, Heart sounds normal; Intact distal pulses; The pedal pulses are 2+ and symmetric. Radial pulses are 2+ and symmetric. (-) Murmur Pulmonary/Chest wall: Effort normal. (-) Respiratory distress, (-) Wheezes, (-) Rales Abd: Soft, (-) Tenderness, (-) Distension, (-) Guarding, (-) Rebound Musculoskeletal: (-) Edema Lymph: (-) Cervical adenopathy Neuro: Alert, Oriented x3 Psych: Mood and affect Normal Triage Information Reviewed: Yes Vital Signs On Initial Exam: Initial Vitals Temp Pulse Resp BP Pulse Ox 97.2 F 86 18 107/66 100 07/15/16 07:36 07/15/16 07:36 07/15/16 07:36 07/15/16 07:36 07/15/16 07:36 Vital Signs Reviewed: Yes Diagnostics - Vital Signs Vital Signs Temp Pulse Resp BP Pulse Ox 07/15/16 07:36 97.2 F 86 18 107/66 100 - Laboratory Lab Statement: Any lab studies that have been ordered have been reviewed, and results considered in the medical decision making process. Complex Multi-Symp Course/Dx Assessment/Plan: This is a 31 year-old female coming to [facility] for evaluation of dental pain since yesterday, after an incomplete dental procedure. She states that she has been seen in the ED previously with a similar complaint of dental pain, and the pain management at that time was inadequate. The patient has already been prescribed amoxicillin by the dentist. She has an appointment to see an oral surgeon in 2 weeks. The patient was discharged with percocet and agrees to follow up the oral surgeon as scheduled. Records reviewed: last narcotic prescription was on July 06, 2016 at [facility] [place] [place] ([address] 5/325). All medications were reviewed this visit. - Diagnoses Provider Diagnoses: Pain, dental Discharge - Discharge Plan Condition: Stable Disposition: HOME Prescriptions: oxyCODONE/Acetamin 5/325 MG* [Percocet 5/325 TAB*] 1 tab PO Q6H PRN #8 tab MDD 4 PRN Reason: Pain - Moderate To Severe Patient Education Materials: Toothache (ED) Referrals: [facility] [place] [facility] REFERRAL [Outside] The documentation as recorded by the Phillip garg Billy accurately reflects the service I personally performed and the decisions made by me, Roberto Carlos Sharma MD.
== END 2016-07-15 08:07 | disposition home or self-care (01) ==
LOC: ED 07:24
DX: K08.89 Other specified disorders of teeth and supporting structures (principal)
CPT/HCPCS: 99282; A9270-GY

== ENCOUNTER 2016-07-16 12:26 | Emergency (ER) | payer OTHER ==
[2016-07-16 12:31] VITALS: BP 122/79
--- NOTE | 2016-07-16 14:40 | ED ---
Throat Pain/Nasal Congestion - HPI Summary HPI Summary: 31 female presents very angry to ED with complaints of ongoing dental pain for the past couple of years. Patient was seen in ED 2 days ago with same complaints. Patient had a dentist appointment to have teeth pulled however, was unable to complete procedure due to patient being awake and too nervous. Patient states she has new appointment in 2 weeks to have procedure completed. Patient states the pain is in her left upper molar and radiates into her left ear/cheek. Pain is not relieved by NSAIDs, percocet, toradol, antibiotics or tramadol. Patient is requesting a lidocaine shot. Lollicaine's also do not work. Denies any fever, chills, dizziness, difficulty breathing, difficulty swallowing, abscess formation, swelling, discharge and bleeding. - History of Current Complaint Chief Complaint: EDDentalPain Time Seen by Provider: 07/16/16 13:44 Hx Obtained From: Patient Onset/Duration: Gradual Onset, Lasting Weeks, Still Present, Worse Since Severity: Severe Associated Signs And Symptoms: Positive: Negative Cough: None - Epiglottits Risk Factors Epiglottis Risk Factors: Negative - Allergies/Home Medications Allergies/Adverse Reactions: Allergies Allergy/AdvReac Type Severity Reaction Status Date / Time Erythromycin Allergy Unknown Rash Verified 07/14/16 19:12 PMH/Surg Hx/FS Hx/Imm Hx Endocrine/Hematology History: Denies: Hx Diabetes Cardiovascular History: Denies: Hx Hypertension History: Denies: Hx Renal Disease Psychiatric History: Reports: Hx Anxiety - severe,not taking meds,sees TCMHD, Hx Depression, Hx Community Mental Health Tx - TCMH - Not currently, Other Psychiatric Issues/Disorders - HX Mental health issues Denies: Hx Attention Deficit Hyperactivity Disorder, Hx Eating Disorder, Hx Panic Disorder, Hx Post Traumatic Stress Disorder, Hx Inpatient Treatment, Hx Schizophrenia, Hx Bipolar Disorder, Hx Suicide Attempt, Hx of Violent Episodes Against Others, Hx Substance Abuse - Surgical History Surgery Procedure, Year, and Place: - Immunization History Date of Tetanus Vaccine: not up to date Infectious Disease History: No Infectious Disease History: Denies: Hx Clostridium Difficile, Hx Hepatitis, Hx Human Immunodeficiency Virus (HIV), Hx of Known/Suspected MRSA, Hx Shingles, Hx Tuberculosis, Hx Known/ Suspected VRE, Hx Known/Suspected VRSA, History Other Infectious Disease, Traveled Outside the [place] in Last 30 Days - Family History Known Family History: Positive: None, Other - migraines Negative: Cardiac Disease Family History: R & n/C - Social History Alcohol Use: None Hx Substance Use: Yes Substance Use Type: Reports: None Substance Use Comment - Amount & Last Used: last 4 days ago Hx Tobacco Use: Yes Smoking Status (MU): Light Every Day Tobacco Smoker Have You Smoked in the Last Year: No Cessation Counseling: Patient Advised to Stop Review of Systems Constitutional: Negative Eyes: Negative Positive: Dental Pain Cardiovascular: Negative Respiratory: Negative Gastrointestinal: Negative Musculoskeletal: Negative Skin: Negative Positive: Headache All Other Systems Reviewed And Are Negative: Yes Physical Exam Triage Information Reviewed: Yes Vital Signs On Initial Exam: Initial Vitals Temp Pulse Resp BP Pulse Ox 98.9 F 84 20 122/79 100 07/16/16 12:28 07/16/16 12:28 07/16/16 12:28 07/16/16 12:28 07/16/16 12:28 Vital Signs Reviewed: Yes Appearance: Positive: Well-Appearing - patient was very frustrated, complaining about multiple staff members upon arrival before introducing myself, was able to calm and discuss current issues with patient., No Pain Distress, Well- Nourished Skin: Positive: Warm, Skin Color Reflects Adequate Perfusion, Dry, Other - no discharge, abscess formation, bleeding or edema noted Head/Face: Positive: Normal Head/Face Inspection Eyes: Positive: Normal, EOMI, RENEA, Conjunctiva Clear ENT: Positive: Normal ENT inspection, Hearing grossly normal, Pharynx normal, TMs normal, Dental tenderness - left upper molars. Negative: Pharyngeal erythema, Nasal congestion, Nasal drainage, Tonsillar swelling, Tonsillar exudate, Trismus, Muffled/hoarse voice Dental: Positive: Gross Decay/Caries @, Oropharynx - normal. Negative: Dental Fracture @, Abscess @, Cellulitis @, Cervical Lymphadenopathy, Bleeding Neck: Positive: Supple, Nontender, No Lymphadenopathy Respiratory/Lung Sounds: Positive: Clear to Auscultation, Breath Sounds Present Cardiovascular: Positive: Normal, RRR, Pulses are Symmetrical in both Upper and Lower Extremities Abdomen Description: Positive: Nontender Bowel Sounds: Positive: Present Musculoskeletal: Positive: Normal, Strength/ROM Intact Neurological: Positive: Normal, Sensory/Motor Intact, Alert, Oriented to Person Place, Time Psychiatric: Positive: Anxious - angry, frustrated Diagnostics - Vital Signs Vital Signs Temp Pulse Resp BP Pulse Ox 07/16/16 12:30 98.9 F 84 20 122/79 100 07/16/16 12:28 98.9 F 84 20 122/79 100 - Laboratory Lab Statement: Any lab studies that have been ordered have been reviewed, and results considered in the medical decision making process. EENT Course/Dx - Course Course Of Treatment: Normal PE findings besides gross dental caries. Patient has significant dental history and states she has dry sockets. Patient was requesting a nerve block injection, however due to inadequate training by myself and supervising physicians in the ED, as well as not having a follow up appointment with dentist in the next couple of days, it could not be preformed. Patient was asking if there were any stronger medications she could take and it was throughouly explained that she has tried all options. Discussed seeing a dentist to have issue resolved would be the only thing to solve the reason for her pain. Patient was very frustrated with nursing staff and "the hospital" however was understanding with current course of treament and explanation. Spoke with Dr Olvera, Dr Sharma and Dr Del Rio about patient. Instructed to give pain management and send to dentist. Attempted to give ice, lollicaine and other pain management however patient declined for multiple different reasons. Given pain management and antibiotic. Told to take ibuprofen in between doses. Spoke with patient relations. Patient was in agreement with plan of taking 2 percocet every 6 hours as needed for pain for the next 2-3 days and to try and get into dentist for them to administer nerve block. Told this would be the last time we are able to give her narcotic pain management in ED for her dental complaint. She understanded. Patient handed in the last 3 pills of percocet back into hospital staff that she was given 2 days ago from ED. - Differential Diagnoses Differential Diagnoses: Dental Abscess, Dental Caries, Fractured Tooth, Odontogenic Pain, Other - Diagnoses Provider Diagnoses: Pain, dental - Provider Notifications Discussed Care of Patient with: Dr Olvera, Dr Sharma, Dr Del Rio Discharge - Discharge Plan Condition: Stable Disposition: HOME Prescriptions: Penicillin VK TAB* [Penicillin VK 250 mg Tab*] 250 mg PO QID #28 tab Patient Education Materials: Toothache (ED) Referrals: No Primary Care Phys,NOPCP [Primary Care Provider] - [facility] [place] [facility] [Outside] Additional Instructions: Take prescribed pain medication as needed. Take Ibuprofen in between doses with food, if tolerable. Take antibiotic as directed until entire dose is finished. Drink plenty of fluids, eat soft foods such as yogurt and smoothies, keep good oral hygiene and ice area of pain. Follow up with your dentist.
[2016-07-16] MEDS ORDERED: oxyCODONE/Acetamin 5/325 MG* TAB PO ONE (14:41)
== END 2016-07-16 15:00 | disposition home or self-care (01) ==
LOC: ED 12:26
DX: K08.89 Other specified disorders of teeth and supporting structures (principal); R51 Headache; F17.210 Nicotine dependence, cigarettes, uncomplicated
CPT/HCPCS: 99281

== ENCOUNTER 2016-07-19 09:42 | Emergency (ER) | payer OTHER ==
[2016-07-19 10:22] VITALS: BP 110/65
--- NOTE | 2016-07-19 10:54 | UC ---
Dental HPI - HPI Summary HPI Summary: Ongoing dental pain on L top and bottom teeth. Went to [facility] "last week sometime" and they started trying to do an extraction but pt could feel dental work despite injected numbing medicine so she stopped the work. Since then having trouble controlling pain. Is taking 3-4 tablets of ibuprofen 800mg because it is the ONLY THING that relieves her pain. Her mother suggested she come here for a higher dose of oxycodone. Claims the hydrocodone doesn't help. Is having pain in front of and below ear. No facial swelling or fever. - History of Current Complaint Chief Complaint: UCDentalProblem Stated Complaint: DENTAL PAIN Time Seen by Provider: 07/19/16 10:22 Hx Obtained From: Patient Hx Last Menstrual Period: 06/27/16 ?: No Onset/Duration: Gradual Onset, Lasting Weeks Severity: Severe Aggravating: Heat, Cold, Chewing Alleviating: OTC Meds - 3+ grams of ibuprofen at a time - Allergies/Home Medications Allergies/Adverse Reactions: Allergies Allergy/AdvReac Type Severity Reaction Status Date / Time Erythromycin Allergy Unknown Rash Verified 07/14/16 19:12 Home Medications: Home Medications oxyCODONE/Acetamin 5/325 MG* [Percocet 5/325 TAB*] 2 tab PO Q4HR PRN MDD 4 07/19 [History Confirmed 07/19/16] PMH/Surg Hx/FS Hx/Imm Hx Endocrine History Of: Denies: Diabetes, Thyroid Disease Cardiovascular History Of: Denies: Cardiac Disorders, Hypertension Respiratory History Of: Denies: COPD, Asthma GI/ History Of: Denies: Ulcer, Renal Disease Psychological History Of: Reports: Anxiety - severe,not taking meds,sees TCMHD, Depression Denies: Bipolar Disorder, Schizophrenia - Surgical History Surgical History: Yes Surgery Procedure, Year, and Place: - Family History Known Family History: Positive: None, Other - migraines Negative: Cardiac Disease Family History: R & n/C - Social History Alcohol Use: None Substance Use Type: Prescribed Substance Use Comment - Amount & Last Used: OXYCODONE RX Smoking Status (MU): Heavy Every Day Tobacco Smoker Type: Cigarettes Have You Smoked in the Last Year: No When Did the Patient Quit Smoking/Using Tobacco: 2 yrs ago Household Exposure Type: Cigarettes - Immunization History Most Recent Influenza Vaccination: 12/27/13 Most Recent Tetanus Shot: unknown Most Recent Pneumonia Vaccination: none Review of Systems Constitutional: Negative Skin: Negative Eyes: Negative ENT: Dental Pain Respiratory: Negative Cardiovascular: Negative Gastrointestinal: Negative Genitourinary: Negative Motor: Negative Neurovascular: Negative Musculoskeletal: Negative Neurological: Negative Psychological: Negative All Other Systems Reviewed And Are Negative: Yes Physical Exam Triage Information Reviewed: Yes Appearance: Well-Appearing, Well-Nourished Vital Signs: Initial Vital Signs Temp 98.2 F 07/19/16 10:04 Pulse 61 07/19/16 10:04 Resp 16 07/19/16 10:04 BP 110/65 07/19/16 10:04 Pulse Ox 100 07/19/16 10:04 Vital Signs Reviewed: Yes Eye Exam: Normal Eyes: Positive: Conjunctiva Clear ENT: Positive: Normal ENT inspection, Hearing grossly normal, Pharynx normal, TMs normal. Negative: Nasal congestion Dental: Positive: Dental Fracture @ - #18. Negative: Percussion Tenderness @, Gross Decay/Caries @, Abscess @ Neck exam: Normal Neck: Positive: Supple, Nontender, No Lymphadenopathy Respiratory Exam: Normal Respiratory: Positive: Chest non-tender, Lungs clear, Normal breath sounds, No respiratory distress, No accessory muscle use Cardiovascular Exam: Normal Cardiovascular: Positive: RRR, No Murmur Musculoskeletal Exam: Normal Neurological Exam: Normal Neurological: Positive: Alert Psychological Exam: Other - confrontational, defensive, unable to discuss any aspect of her symptoms or treatment other than her oxycodone dose, repeats "I just need something for my pain that WORKS. None of you are listening to me." I observed that there may not be a perfect medication that truly treats her pain, but I am willing to try some things to help with her TMJ pain. Dicussed changing her antibiotic but pt declines. Skin Exam: Normal Dental Complaint Course/Dx - Differential Dx/Diagnosis Provider Diagnoses: Chronic dental pain. L TMJ pain Discharge - Discharge Plan Condition: Stable Disposition: HOME Prescriptions: Cyclobenzaprine TAB* [Flexeril 10 MG TAB*] 10 mg PO TID #15 tab Indomethacin CAP* [Indocin CAP*] 50 mg PO TID PRN #30 cap PRN Reason: Pain Patient Education Materials: Temporomandibular Disorder (ED), Toothache (ED) Referrals: No Primary Care Phys,NOPCP [Primary Care Provider] - Additional Instructions: PLEASE DO NOT TAKE EXTRA DOSES OF THE INDOMETHACIN, AND PLEASE DO NOT COMBINE THIS MEDICATION WITH YOUR IBUPROFEN OR NAPROXEN. You can cause serious injury to your stomach and kidneys by taking these high doses. I believe a lot of your pain is coming from strain at your jaw joint. Use the muscle relaxer and go on a strict no-chewing diet (soups, mashed potatoes, and shakes are preferred). Please follow up with your dentist as soon as possible. Your pain will not get better without your needed dental work. If you continue to have shooting pains in the jaw and cheeks, consultation with a neurologist may also be needed; once your teeth have been repaired your pain should be better. If it's not, you may consider testing for trigeminal neuralgia.
== END 2016-07-19 10:55 | disposition home or self-care (01) ==
LOC: UCEAST 09:42
DX: K08.89 Other specified disorders of teeth and supporting structures (principal); G89.29 Other chronic pain; M26.622 Arthralgia of left temporomandibular joint; F41.9 Anxiety disorder, unspecified; Z88.3 Allergy status to other anti-infective agents; Z87.891 Personal history of nicotine dependence
CPT/HCPCS: 99212; G0463

== ENCOUNTER → 2017-01-12 09:34 | Emergency (ER) | payer OTHER ==
[2017-01-12 10:03] VITALS: BP 90/61
--- NOTE | 2017-01-12 10:09 | ED ---
Adult Trauma - HPI Summary HPI Summary: 16 week pt here w/ fall around 8:30am - had just gotten out of shower, feet were wet and she slipped walking down the stairs. Feet went forward and as she tried to catch herself, she hit her ab against the wall along Lt side. Has had some mild cramping and spotting since - pink d/c upon urination only - no vaginal bleeding. Denies any other areas of pain or injury but as performing PE, Rt shoulder muscles are TTP. Denies head injury, neck pain , OWENS, back pain, extremity pain, numbness, tingling, weakness. Since fall, she has had a normal BM, urinated and ate food w/o difficulty. Denies N/V/D. Offered acetaminophen and ice for shoulder pain - pt accepts ice, declines acetaminophen. - History of Current Complaint Chief Complaint: EDOBProblems Stated Complaint: 16 WEEKS PREG, SPOTTING, FALL Time Seen by Provider: 01/12/17 09:52 Hx Obtained From: Patient Hx Last Menstrual Period: 06/27/16 Pain Intensity: 8 - Allergy/Home Medications Allergies/Adverse Reactions: Allergies Allergy/AdvReac Type Severity Reaction Status Date / Time Erythromycin Allergy Unknown Rash Verified 01/12/17 09:39 Home Medications: Home Medications Multivit-Min W/Fe-FA [Mynatal] 1 cap PO DAILY 01/12/17 [History Confirmed 01/12/17] PMH/Surg Hx/FS Hx/Imm Hx Previously Healthy: Yes Endocrine/Hematology History: Denies: Hx Anticoagulant Therapy, Hx Blood Disorders, Hx Diabetes, Hx Thyroid Disease, Hx Unexplained Bleeding Cardiovascular History: Denies: Hx Hypertension Respiratory History: Denies: Hx Asthma, Hx Chronic Obstructive Pulmonary Disease (COPD) GI History: Denies: Hx Ulcer History: Denies: Hx Renal Disease Psychiatric History: Reports: Hx Anxiety - severe,not taking meds,sees TCMHD, Hx Depression, Hx Community Mental Health Tx - TCMH - Not currently, Other Psychiatric Issues/Disorders - HX Mental health issues Denies: Hx Attention Deficit Hyperactivity Disorder, Hx Eating Disorder, Hx Panic Disorder, Hx Post Traumatic Stress Disorder, Hx Inpatient Treatment, Hx Schizophrenia, Hx Bipolar Disorder, Hx Suicide Attempt, Hx of Violent Episodes Against Others, Hx Substance Abuse - Surgical History Surgery Procedure, Year, and Place: - Immunization History Date of Tetanus Vaccine: not up to date Infectious Disease History: No Infectious Disease History: Denies: Hx Clostridium Difficile, Hx Hepatitis, Hx Human Immunodeficiency Virus (HIV), Hx of Known/Suspected MRSA, Hx Shingles, Hx Tuberculosis, Hx Known/ Suspected VRE, Hx Known/Suspected VRSA, History Other Infectious Disease, Traveled Outside the [place] in Last 30 Days - Family History Known Family History: Positive: Other - migraines Negative: Cardiac Disease - Social History Lives: With Family Alcohol Use: None Hx Substance Use: Yes Substance Use Type: Reports: Prescribed Substance Use Comment - Amount & Last Used: OXYCODONE RX Hx Tobacco Use: Yes Smoking Status (MU): Heavy Every Day Tobacco Smoker Type: Cigarettes Have You Smoked in the Last Year: No Review of Systems Constitutional: Negative Negative: Fatigue Eyes: Negative Negative: Photophobia, Blurred Vision, Diplopia ENT: Negative Negative: Dental Pain Cardiovascular: Negative Respiratory: Negative Negative: Shortness Of Breath Gastrointestinal: Other - cramping as in HPI Negative: Vomiting, Diarrhea, Nausea Positive: see HPI Positive: Myalgia Skin: Negative Neurological: Negative Psychological: Normal All Other Systems Reviewed And Are Negative: Yes Physical Exam Triage Information Reviewed: Yes Vital Signs On Initial Exam: Initial Vitals Temp Pulse Resp BP Pulse Ox 97.1 F 76 16 104/51 100 01/12/17 09:35 01/12/17 09:35 01/12/17 09:35 01/12/17 09:35 01/12/17 09:35 Vital Signs Reviewed: Yes Appearance: Positive: Well-Appearing, No Pain Distress, Well-Nourished Skin: Positive: Warm, Dry - no erythema, no ecchymosis over affected area Head/Face: Positive: Normal Head/Face Inspection Eyes: Positive: Normal, EOMI, RENEA, Conjunctiva Clear ENT: Positive: Normal ENT inspection, Hearing grossly normal, Pharynx normal - mucosa moist Neck: Positive: Supple, Nontender Respiratory/Lung Sounds: Positive: Clear to Auscultation, Breath Sounds Present - chest NTTP Cardiovascular: Positive: Normal, RRR Abdomen Description: Positive: Nontender, No Organomegaly, Soft Bowel Sounds: Positive: Present Pelvic Exam: Positive: other - deferred Musculoskeletal: Positive: Strength/ROM Intact, Pain @ - Rt trapezius m TTP Neurological: Positive: Normal, Sensory/Motor Intact, Alert, Oriented to Person Place, Time, CN Intact II-III Psychiatric: Positive: Normal Diagnostics - Vital Signs Vital Signs Temp Pulse Resp BP Pulse Ox 01/12/17 09:35 97.1 F 76 16 104/51 100 - Laboratory Diagnostic Studies Comment: U/S report indicates single intrauterine gestation at 15 weeks and 6 days by composite gestational age; FHR is 139 (WNL) and no retroplacental fluid collection. See report for remaining details Lab Statement: Any lab studies that have been ordered have been reviewed, and results considered in the medical decision making process. Adult Trauma Course/Dx - Course Course Of Treatment: 16 week pt established w/ Dr. Fiore here w/ c/o falling downstairs and hitting Lt side of ab against wall only. As she twisted to catch herself, she also pulled her Rt trapezius m. Has had mild cramping and "spotting" she reports as pink colored urine only - no vaginal bleeding. Had eaten, drank and moved bowels and urine prior to arrival w/o pain or complications. Her U/S reveals 15 week and 6 day w/o distress ( HR 139) and no significant trauma to placenta (no bleeding, etc). Education provided and danger s/sx reviewed for when to return to ED. She is advised to f/ u w/ OB tomorrow. - Diagnoses Provider Diagnoses: Fall, with 15 completed weeks gestation, Strain of right trapezius muscle Discharge - Discharge Plan Condition: Stable Disposition: HOME Patient Education Materials: (ED), Muscle Strain (ED), Fall Prevention (ED) Referrals: Lazaro Fiore MD [Medical Doctor] - Additional Instructions: Your ultrasound appears normal today and fetus with regular heart rate. Follow-up with OBGYN tomorrow - call today to schedule an appointment *If you develop worsening of abdominal cramping, vaginal bleeding, chest pain, shortness of breath or back pain, return to ED For your muscle strain, you may ice alternating with heat, gentle stretches and take acetaminophen as needed for pain *If pain persists, follow-up with PCP
--- NOTE | 2017-01-12 11:09 | RAD ---
HISTORY: Fall with injury, cramping and spotting, . The gestational age by dates is: Unknown COMPARISONS: None available at the time of dictation. TECHNIQUE: Multiple transverse and longitudinal ultrasound images were obtained of the gravid uterus using Grayscale and M-mode Doppler imaging. FINDINGS: /PLACENTAL EVALUATION: Number of fetuses: Single Presentation: Breech cardiac activity: 139 bpm Gross motion: Observed Placenta position: Anterior Amniotic fluid volume: Normal. There are no retroplacental fluid collections. There is focal thickening of the anterior placenta which may reflect a contraction. BIOMETRY: Biparietal diameter: 3.13 cm 15 weeks, 6 days Head circumference: 11.9 cm 16 weeks, 0 days Abdominal circumference: 9.93 cm 16 weeks, 0 days Femur length: 1.7 cm 15 weeks, 1 day HC/AC: 1.2 Estimated weight: 128 grams, +/- 19 grams GESTATIONAL AGE: The composite gestational age is: 15 weeks, 6 days. The SHARATH is: June 24, 2017. ANATOMY: anatomy is not performed as part of this evaluation. CERVIX: The cervix is long and closed, without funneling.. OTHER: None IMPRESSION: 1. SINGLE LIVE INTRAUTERINE GESTATION AT 15 WEEKS, 6 DAYS BY COMPOSITE GESTATIONAL AGE. 2. NO RETROPLACENTAL FLUID COLLECTION.
== END | disposition home or self-care (01) ==
LOC: ED 09:34
DX: O26.852 Spotting complicating pregnancy, second trimester (principal); Z3A.15 15 weeks gestation of pregnancy; S46.811A Strain of other muscles, fascia and tendons at shoulder and upper arm level, right arm, initial encounter; W10.9XXA Fall (on) (from) unspecified stairs and steps, initial encounter; Y93.89 Activity, other specified; Y92.008 Other place in unspecified non-institutional (private) residence as the place of occurrence of the external cause; Z88.1 Allergy status to other antibiotic agents; F41.9 Anxiety disorder, unspecified; F32.9 Major depressive disorder, single episode, unspecified; F17.210 Nicotine dependence, cigarettes, uncomplicated
CPT/HCPCS: 76815; 99282

== ENCOUNTER 2017-06-28 07:43 | Inpatient (IN) | payer OTHER ==
[2017-06-27 15:48] LABS: ABS Basophils 0 10^3/ul (0-0.2); ABS Eosinophils 0 10^3/ul (0-0.6); ABS Lymphocytes 1.3 10^3/ul (1.0-4.8); ABS Monocytes 0.4 10^3/ul (0-0.8); ABS Neutrophils 4.9 10^3/ul (1.5-7.7); ABS Nucleated RBC 0 10^3/ul; Eosinophil % 0.4 % (0-6); Hematocrit 36 % (35-47); Lymphocyte % 19.9 % (25-47); Mean Corpuscular HGB Conc 34 g/dl (31-36); Mean Corpuscular Hemoglobin 29 pg (27-31); Mean Corpuscular Volume 85 fL (80-97); Mean Platelet Volume 8.9 um3 (7.4-10.4); Nucleated Red Blood Cells % 0; Platelet Count 162 10^3/ul (150-450); Red Blood Count 4.18 10^6/ul (4.0-5.4); Red Cell Distribution Width 14 % (10.5-15); White Blood Count 6.6 10^3/ul (3.5-10.8)
--- OUTSIDE RECORDS SUMMARY | 2017-06-28 07:47 | XMS REPORT ---
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 Payers Type Date Identification Numbers Payment Provider Subscriber Commercial Policy Number: [id number] [facility] Cristine Cruz PayID: [id number] [address] [address] [place] [address] Problems Date Description Provider Status Onset: 12/12/2013 Multigravida Linda Rabago NP Active Onset: 12/12/2013 Anxiety Linda Rabago NP Active Onset: 07/10/2014 H/O: anxiety state Active Onset: 07/10/2014 Born by section Active Onset: Past history of procedure Active Onset: Short cervical length in Active Family History Date Family Member(s) Problem(s) Comments Father A&W Mother Migraine Paternal Grandfather due to Unknown Causes () Paternal Grandmother due to Natural Causes () Maternal Grandfather due to Unknown Causes () Maternal Grandmother due to Natural Causes () Social History Type Date Description Comments Education Highest level completed, 11th grade Lives With Son older son lives with his father Pets None Work Status Not Currently Working Cigarette Use Does Not Smoke Cigarettes ETOH Use Does Not Drink Alcohol Recreational Drug Use Does Not Use Drugs Past use of THC Smoking Patient has never smoked Daily Caffeine Consumes on average 4 cups of coffee per day STD's Chlamydia in past Allergies, Adverse Reactions, Alerts Date Description Reaction Status Severity Comments 12/12/2013 Erythromycin active Medications Medication Date Status Form Strength Qnty SIG Indications Ordering Provider 06/18/ Active Tablets 27-0.8mg 30tab 1 by mouth Tran 2018 s every day. Rowe, Ok to CNM substitute vitamin covered by insurance Cyclobenzaprine 05/26/ Active Tablets 5mg 30tab 1 tablet po Tran HCL 2018 s q 8hrs prn Rowe, pain CNM Zoloft / Active Unknown 0000 Percocet 05/07/ Hx Tablets 5-325mg 10tab take one Brenda 2018 - s tablet by Mara, 05/26/ mouth every LM 2018 4- 6 hours as needed for pain. Zoloft 01/03/ Hx Tablets 100mg 30tab take 1 by Woo Wells 2013 - s mouth every Gelber, 05/14/ night at M.D. 2018 bedtime Plus Dha 12/27/ Hx Tablets 7-0.4-100 90tab 1 by mouth Razia 2014 - mg s every day Chen, 06/18/ please use 2018 any generic vitamin covered by ins. with dha 100-300 mg. thanks Vistaril 12/14/ Hx Capsules 25mg 30cap 1 po q6hrs Woo Wells 2013 - s prn nausea Gelber, 05/14/ M.D. 2018 Tylenol Extra 12/14/ Hx Tablets 500mg 60tab 2 by mouth Woo Murphy 2013 - s every 6hrs Gelber, 05/14/ as needed M.D. 2018 Zoloft 12/12/ Hx Tablets 50mg 30tab take 1/2 Razia 2013 - s tab for 5 Chen, 01/03/ days then 2013 increase to 1 tab every day Zofran Odt 12/12/ Hx Tablets 8mg 60tab 1 by mouth Uriah 2014 - Dispers s every 8 as MD Jayleen 05/14/ needed 2018 Immunizations CPT Code Status Date Vaccine Lot # [id number] Given 01/11/2014 Influenza Virus Vaccine 3Years Or Older [id number] Given 12/28/2013 Influenza Virus Vaccine 3Years Or Older 70727 Given 12/28/2013 Influenza Virus Vaccine 3Years Or Older Vital Signs Date Vital Result Comment 06/22/2017 BP Systolic 120 mmHg BP Diastolic 66 mmHg Body Temperature 98.5 F Heart Rate 86 /min Respiratory Rate 16 /min Height 67 inches 5'7" Weight 212.00 lb BMI (Body Mass Index) 33.2 kg/m2 Last Menstrual Period 4783016 3 Parity 2 05/13/2017 BP Systolic 112 mmHg BP Diastolic 66 mmHg Height 67 inches 5'7" Weight 204.00 lb BMI (Body Mass Index) 31.9 kg/m2 Last Menstrual Period 6241450 3 Parity 2 04/30/2017 BP Systolic 103 mmHg BP Diastolic 65 mmHg Body Temperature 98.7 F Heart Rate 98 /min Respiratory Rate 20 /min Height 67 inches Weight 185.00 lb BMI (Body Mass Index) 29.0 kg/m2 12/14/2013 BP Systolic 102 mmHg BP Diastolic 60 mmHg Body Temperature 98.2 F Height 63.25 inches 5'3.25" Weight 129.00 lb BMI (Body Mass Index) 22.7 kg/m2 2 Parity 1 12/12/2013 BP Systolic 124 mmHg BP Diastolic 82 mmHg Height 63.25 inches 5'3.25" Weight 133.00 lb BMI (Body Mass Index) 23.4 kg/m2 Last Menstrual Period [id number] 2 Parity 1 Results Test Date Test Result H/L Range Note Laboratory test 06/10/2017 Group B Strep SEE RESULT BELOW 1 finding Culture Screen Laboratory test 06/09/2017 Gardnerella/Yeast: SEE RESULT BELOW 2, 3 finding Vaginal Dna Urinalysis Profile 06/09/2017 Urine Color Yellow Urine Appearance Cloudy Urine Specific [place] 1.024 1.010-1.030 Urine pH 5.0 5-9 Urine Urobilinogen Negative Negative Urine Ketones Negative Negative Urine Protein Negative Negative Urine Leukocytes 1+ Negative Urine Blood Negative Negative * * Negative 4 Urine Nitrite Negative Negative Urine Bilirubin Negative Negative Urine Glucose Negative Negative Urine White Blood Cell 2+(11-20/hpf) Absent Urine Red Blood Cell 1+(3-5/hpf) Absent Urine Bacteria Absent Absent Urine Squamous Epithelial Cell Present Absent Urine Culture And 06/09/2017 Urine Culture SEE RESULT BELOW 5 Sensitivities Laboratory test finding 05/18/2017 Glucose 1 HR Post 137 mg/dL 70-160 Prandial CBC With No Diff 05/18/2017 White Blood Count 8.7 10^3/uL 3.5-10.8 Red Blood Count 3.83 10^6/uL Low 4.0-5.4 Hemoglobin 10.9 g/dL Low 12.0-16.0 Hematocrit 33 % Low 35-47 Mean Corpuscular Volume 86 fL 80-97 Mean Corpuscular Hemoglobin 29 pg 27-31 Mean Corpuscular HGB Conc 33 g/dL 31-36 Red Cell Distribution Width 14 % 10.5-15 Platelet Count 171 10^3/uL 150-450 Mean Platelet Volume 9 um3 7.4-10.4 Laboratory test 05/07/2017 Gardnerella/Yeast: SEE RESULT 2, 6 finding Vaginal Dna BELOW Urine Drug SCR ED 05/07/2017 Amphetamine Ur Screen None Detected None Detect & [facility] Barbiturates Urine Screen None Detected None Detect Benzodiazepine Urine Screen None Detected None Detect Urine Cannabinoids Screen None Detected None Detect Urine Cocaine Screen None Detected None Detect Urine Opiates Screen None Detected None Detect Urine Phencyclidine Screen None Detected None Detect 7 Urinalysis Profile 03/31/2017 Urine Color Yellow Urine Appearance Clear Urine Specific [place] 1.024 1.010-1.030 Urine pH 7.0 5-9 Urine Urobilinogen Negative Negative Urine Ketones Negative Negative Urine Protein Negative Negative Urine Leukocytes Trace Negative Urine Blood Negative Negative Urine Nitrite Negative Negative Urine Bilirubin Negative Negative Urine Glucose 1+(50 mg/dL) Negative Urine White Blood Cell Trace(0-5/hpf) Absent Urine Red Blood Cell Absent Absent Urine Bacteria 1+ Absent Urine Squamous Epithelial Cell Present Absent Urine Culture And Sensitivities 03/31/2017 Urine Culture SEE RESULT BELOW 8 Serum Integrated SCRN Part 1 [place] 12/28/2013 Comment SEE BELOW 9 Referring Physician Name LINDA RABAGO 10 Referring Physician Phone [phone] Referring Physician Npi [phone] Date Of 1984 13 Collection Date 12/28/2013 14 Maternal Weight 129 LBS 15 Est'd Date Of Delivery 07/09/2014 16 SHARATH Determined By U 17 Mother's Ethnic Origin 18 Number Of Fetuses 1 19 Insulin Depend Diabetic NO 20 Repeat Specimen NO 21 HX Of Neural Tube Defects NO 22 Brief History (NTD) NG 23 Prev Down Synd NO 24 Donor Egg NO 25 Donor Age:Egg Retrieval NG 26 PNL No Urine 12/14/2013 Rubella Screen Immune IU/mL Immune 27 Hemoglobin A1c 5.7 % Less than 6.0 27, 28 Hepatitis B Surface Antigen Nonreactive Nonreactive 27, 29 RPR 12/14/2013 Syphilis IgG TNP Nonreactive 27, 30 RPR Nonreactive Nonreactive 27, 31 RPR Titer TNP 27 Pediatric/Maternal YES 27 Type And Screen 12/14/2013 Patient Blood Type A Positive 27 Antibody Screen NEGATIVE 27 HIV 1/2 AB Evaluation 12/14/2013 HIV 1 2 Antibody Nonreactive Nonreactive 27, 32 Hemoglobin 12/14/2013 Hemoglobin A2 2.5 % 2.0-3.3 Electropheresis Hemoglobin F 0.0 % 0.0-0.9 Hemoglobin A 97.5 % 95.8-98.0 Variant Hemoglobin 0.0 % 33 Hemoglobin Electro Interp See Comment 34 CBC With Manual Diff 12/14/2013 White Blood Count 7.5 10^3/uL 4.8-10.8 27 Red Blood Count 4.91 10^6/uL 4.0-5.4 27 Hemoglobin 13.9 g/dL 12.0-16.0 27 Hematocrit 42 % 35-47 27 Mean Corpuscular Volume 86 fL 80-97 27 Mean Corpuscular Hemoglobin 28 pg 27-31 27 Mean Corpuscular HGB Conc 33 g/dL 31-36 27 Red Cell Distribution Width 14 % 10.5-15 27 Platelet Count 235 10^3/uL 150-450 27 Mean Platelet Volume 8 um3 7.4-10.4 27 Abs Neutrophils 6.5 10^3/uL 1.5-7.7 27 Abs Lymphocytes 0.5 10^3/uL Low 1.0-4.8 27 Abs Monocytes 0.5 10^3/uL 0-0.8 27 Abs Eosinophils 0 10^3/uL 0-0.6 27 Abs Basophils 0 10^3/uL 0-0.2 27 Abs Nucleated RBC 0 10^3/uL 27 Neutrophil % 87 % High 38-83 27 Band % 1 % 0-8 27 Lymphocytes % 7 % Low 25-47 27 Monocytes % 3 % 0-13 27 Basophil % 1 % 0-2 27 Reactive Lymph % 1 % 0-6 27 RBC Morphology Normal Normal 27 Laboratory test 12/12/2013 Cytology RUN DATE: finding <SEE NOTE> GC/Chlamydia Dna 12/12/2013 GC/Chlamydia Rna (SEE NOTE) 36 Probe HPV High Risk 12/12/2013 Human Papillomavirus See Comment 37 Source HPV High Risk Type 16, PCR Negative Negative HPV High Risk Type 18, PCR Negative Negative HPV Other Risk types Positive Negative 38 Urine Culture And Sensitivities 12/12/2013 Urine Culture (SEE NOTE) 39 1 SEE RESULT BELOW Name: CRISTINE CRUZ : [address]: Tiffanie Stout [facility] Acct: [id number] Unit: [id number] AGE: 32 Location: [facility] Re06/10/17 SEX: F Status: REG REF SPEC: [id number] DAVIE: 06/10/17-[address]: Tiffanie Stout [facility] REQ: [id number] RECD: 06/10/17 STATUS: ARMANDO BEAUCHAMP DR: Zita Primary Care Phys,NOPCP _ SOURCE: CER/VAG/RE SPDESC: ORDERED: Grp B Strp Scrn QUERIES: Is Patient Penicillin Allergic? N Is patient penicillin allergic and/or sensitivities needed? N Provider Requisition # [id number]_ Procedure Result Reported Site Group B Strep Culture Screen Final 06/12/17- 1235 ML Group B Strep Screen Negative * ML - Main Lab . END OF REPORT DEPARTMENT OF PATHOLOGY, [address] [place] [address] Julio Wood M.D. Director [facility] # [id number] 2 Would you like to order Trichomonas Vaginalis RNA testing? Y 3 SEE RESULT BELOW Name: CRISTINE CRUZ : [address]: Alida Medeiros MD Acct: [id number] Unit: [id number] AGE: 32 Location: [facility] Re06/08/17 SEX: F Status: DEP REF SPEC: [id number] DAVIE: 06/09/[address] [facility] [address]: Alida Medeiros MD REQ: [id number] RECD: 06/09/17 STATUS: ARMANDO BEAUCHAMP DR: No Primary Care Phys,[facility] _ SOURCE: VAGINAL SPDESC: ORDERED: Jeanette,Yeast DNA, Trich DNA COMMENTS: Would you like to order Trichomonas Vaginalis RNA testing? Y Procedure Result Reported Site Gardnerella/Yeast: Vaginal DNA Final 06/09/17- 1210 ML Organism 1 Negative Cassy Organism 2 Negative Gardnerella The presence of G. vaginalis, although suggestive, is not diagnostic for bacterial vaginosis. Results should be interpreted in conjuction with other clinical and laboratory data available. Women with vaginal discharge should be evaluated for risk factors of cervicitis and pelvic inflammatory disease, toxic shock syndrome (S.aureus), and if present, evaluated for organisms not included in this assay such as N. gonorrhoeae, C. trachomatis, Mobiluncus, Mycoplasma and/or Prevotella. Mixed infections may occur. The performance of this test on patient specimens collected during or immediately after antimicrobial therapy is unknown. The presence or absence of Cassy species, or G. vaginalis cannot be used as a test for therapeutic success or failure. Trichomonas: Vaginal DNA Probe Final 06/09/17- 1210 ML Organism 1 POSITIVE TRICHOMONAS CONTINUED ON NEXT PAGE DEPARTMENT OF PATHOLOGY, [address] [place] [address] Julio Wood M.D. Director [facility] # [id number] Patient: CRISTINE CRUZ [id number] (Continued) Specimen: [id number] Collected: 06/09/17 Received: 06/09/17 (Continued) Procedure Result Reported Site Trichomonas: Vaginal DNA Probe Final (continued) 06/09/17- 1210 The presence or absence of T. vaginalis cannot be used as a test for therapeutic success or failure. * ML - Main Lab . END OF REPORT DEPARTMENT OF PATHOLOGY, [address] [place] [address] Julio Wood M.D. Director [facility] # [id number] 4 *Ascorbic acid is present which may interfere with detection of blood. 5 SEE RESULT BELOW Name: CRISTINE CRUZ : [address]: Alida Medeiros MD Acct: [id number] Unit: [id number] AGE: 32 Location: [facility] Re06/08/17 SEX: F Status: DEP REF SPEC: [id number] DAVIE: 06/09/[address]: Alida Medeiros MD REQ: [id number] RECD: 06/09/17 STATUS: ARMANDO BEAUCHAMP DR: Zita Primary Care Phys,NOPCP _ SOURCE: URINE SPDESC: ORDERED: Urine Culture QUERIES: Urine Source: Clean Catch Procedure Result Reported Site Urine Culture Final 06/10/17- 0806 ML No Growth (<1,000 CFU/mL) * ML - Main Lab . END OF REPORT DEPARTMENT OF PATHOLOGY, [address] [place] [address] Julio Wood M.D. Director [facility] # [id number] 6 SEE RESULT BELOW Name: CRISTINE CRUZ : [address]: Lazaro Fiore MD Acct: [id number] Unit: [id number] AGE: 32 [facility] Re05/07/17 SEX: F Status: DEP REF SPEC: [id number] DAVIE: 05/07/17-[address]: Brenda Terry CM REQ: [id number] RECD: 05/07/17 STATUS: COMP [facility] DR: Lazaro Fiore MD Primary [facility] _ SOURCE: VAGINAL SPDESC: ORDERED: Jeanette,Yeast DNA, Trich DNA COMMENTS: Would you like to order Trichomonas Vaginalis RNA testing? Y Procedure Result Reported Site Gardnerella/Yeast: Vaginal DNA Final 05/08/17- 1234 ML Organism 1 Negative Gardnerella Organism 2 Negative Cassy The presence of G. vaginalis, although suggestive, is not diagnostic for bacterial vaginosis. Results should be interpreted in conjuction with other clinical and laboratory data available. Women with vaginal discharge should be evaluated for risk factors of cervicitis and pelvic inflammatory disease, toxic shock syndrome (S.aureus), and if present, evaluated for organisms not included in this assay such as N. gonorrhoeae, C. trachomatis, Mobiluncus, Mycoplasma and/or Prevotella. Mixed infections may occur. The performance of this test on patient specimens collected during or immediately after antimicrobial therapy is unknown. The presence or absence of Cassy species, or G. vaginalis cannot be used as a test for therapeutic success or failure. Trichomonas: Vaginal DNA Probe Final 05/08/17- 1234 ML Organism 1 Negative Trichomonas CONTINUED ON NEXT PAGE * ML=Testing performed at Main Lab DEPARTMENT OF PATHOLOGY, [address] [place] [address] Julio Wood M.D. Director [facility] # [id number] Patient: CRISTINE CRUZ [id number] (Continued) Specimen: [id number] Collected: 05/07/17 Received: 05/07/17-2028 (Continued) Procedure Result Reported Site Trichomonas: Vaginal DNA Probe Final (continued) 05/08/17- 1234 The presence or absence of T. vaginalis cannot be used as a test for therapeutic success or failure. * ML - MAIN LAB ([facility]) . END OF REPORT * ML=Testing performed at Main Lab DEPARTMENT OF PATHOLOGY, [address] [place] [address] Julio Wood M.D. Director [facility] # [id number] 7 The urine specimen was tested at the listed cutoffs: Drug class test level (ng/mL) Amphetamines 500 Barbiturates 200 Benzodiazepine metabolites 200 Cocaine metabolites 150 Cannabinoids 50 Opiates 300 Pcp 25 Specimen was received without chain of custody. Results should be used for medical purposes only. 8 SEE RESULT BELOW Name: CRISTINE CRUZ : [address]: Uriah Clemens MD Acct: [id number] Unit: [id number] AGE: 32 Location: [facility] Re03/31/17 SEX: F Status: DEP REF SPEC: [id number] DAVIE: 03/31/[address] [facility] [address]: Uriah Clemens MD REQ: [id number] RECD: 03/31/17 STATUS: ARMANDO BEAUCHAMP DR: Zita Primary Care Phys,NOPCP _ SOURCE: URINE SPDESC: ORDERED: Urine Culture Procedure Result Reported Site Urine Culture Final 04/02/17- 820 ML No growth of clinically significant organisms * ML - MAIN LAB ([facility]) . END OF REPORT * ML=Testing performed at Main Lab DEPARTMENT OF PATHOLOGY, [address] [place] [address] Julio Wood M.D. Director [facility] # [id number] 9 Thank you for submitting this patients Part 1 specimen. Please submit her Part 2 specimen between 01/15/2014-03/11/2014 (15.0 and 22.9 weeks gestation) with 01/15/2014-01/28/2014 (15.0 and 16.9 weeks gestation) being optimal. When submitting Part 2, please include the following Specimen # from Part 1: [id number] If you have questions concerning this report: For clinical consultation, call ; For technical questions, call ext [phone]; For recalculations, fax to . This test was developed and its performance characteristics have been determined by [facility]. Performance characteristics refer to the analytical performance of the test. For additional information, please refer to http://[email or web address]/faq/FAQ91 (This link is being provided for informational/educational purposes only.) 10 For additional information, please refer to http://Enubila/faq/[email or web address] (This link is being provided for informational/educational purposes only.) 11 For additional information, please refer to http://Enubila/faq/[email or web address] (This link is being provided for informational/educational purposes only.) 12 For additional information, please refer to http://[employer].Gem/faq/FAQ91 (This link is being provided for informational/educational purposes only.) 13 For additional information, please refer to http://Enubila/faq/[email or web address] (This link is being provided for informational/educational purposes only.) 14 For additional information, please refer to http://Enubila/faq/[email or web address] (This link is being provided for informational/educational purposes only.) 15 For additional information, please refer to http://[employer]Gem/faq/FAQ91 (This link is being provided for informational/educational purposes only.) 16 For additional information, please refer to http://Enubila/faq/[email or web address] (This link is being provided for informational/educational purposes only.) 17 For additional information, please refer to http://Enubila/faq/FAQ91 (This link is being provided for informational/educational purposes only.) 18 For additional information, please refer to http://Enubila/faq/FAQ91 (This link is being provided for informational/educational purposes only.) 19 For additional information, please refer to http://Enubila/faq/FAQ91 (This link is being provided for informational/educational purposes only.) 20 For additional information, please refer to http://Enubila/faq/FAQ91 (This link is being provided for informational/educational purposes only.) 21 For additional information, please refer to http://Enubila/faq/FAQ91 (This link is being provided for informational/educational purposes only.) 22 For additional information, please refer to http://Enubila/faq/FAQ91 (This link is being provided for informational/educational purposes only.) 23 For additional information, please refer to http://Enubila/faq/FAQ91 (This link is being provided for informational/educational purposes only.) 24 For additional information, please refer to http://Enubila/faq/FAQ91 (This link is being provided for informational/educational purposes only.) 25 For additional information, please refer to http://Enubila/faq/FAQ91 (This link is being provided for informational/educational purposes only.) 26 For additional information, please refer to http://Enubila/faq/FAQ91 (This link is being provided for informational/educational purposes only.) 27 OTH VIRAL DIS-ANTEPARTUM 28 Therapeutic target for the treatment of diabetes Mellitus patients is <7% HBA1C, and in selective patients <6.0%.Please refer to [place] [employer] Diabetic care guidelines for further information. 29 YES 30 --- 12/15/13 1045 --- Syphilis IgG previously reported as: Nonreactive Warning: A positive result is not useful for establishing a diagnosis of syphilis. In most situations, such a result may reflect a prior treated infection; a negative result can exclude a diagnosis of syphilis except for incubating or early primary disease. 31 --- 12/15/13 1045 --- RPR previously reported as: Test not performed --- 12/15/13 1133 --- RPR previously reported as: --- 12/15/13 1045 --- RPR previously reported as: Test not performed 32 It is recognized that currently available assays for the detection of antibodies to HIV-1 and/or HIV-2 may not detect all infected individuals. HIV antibodies may be undetectable in some stages of the infection and in some clinical conditions. The performance of this assay has not been established for populations of infants or children. Assayed by Chemiluminescence Microparticle Immunoassay on the Siemens Advia Centaur CP. Values obtained with different methods or kits cannot be used interchangeably.The diagnostic specificity of the ADVIA Centaur 1/O/2 Enhanced assay in the low risk population was 99.90% (6052/6058) with a 95% confidence interval of 99.78 to 99.96%. 33 REFERENCE VALUE No abnormal variants 34 No electrophoretic evidence of abnormal hemoglobin or beta thalassemia. See comment. Comment: These results do not exclude alpha thalassemia. The vast majority of hemoglobin variants and beta thalassemias are excluded, although some rare clinically significant hemoglobin disorders are electrophoretically silent. If otherwise unexplained lifelong/familial symptoms such as hemolysis (i.e. Hernan body hemolytic anemia), microcytosis, erythrocytosis, cyanosis, or hypoxia are present and additional testing is desired, please call the [facility] H[facility] Laboratory ( ). If alpha thalassemia is a consideration, alpha globin gene deletion/duplication analysis is available (Alpha Globin Gene Analysis, test ID [id number], order number [id number]). Additional sample required. Test Performed by: [facility] [address] [place] [address] Quality Control Checker: Segun Montana M.D. 35 RUN DATE: 12/13/13 [facility] LAB LIVE PAGE 1 RUN TIME: [address] [place] [address] Specimen Inquiry Name: CRISTINE CRUZ : [address]: Linda Rabago NP Acct: [id number] Unit: [id number] AGE: 28 Location: [facility] Re12/12/13 SEX: F Status: REG REF SPEC: [id number] DAVIE: 12/12/13-[address] [facility] [address]: Linda Rabago NP REQ: [id number] RECD: 12/12/13-5 STATUS: SOUT _ ORDERED: IMAGE ANALYSIS, HPV/Thin Prep FINAL DIAGNOSIS Negative for Intraepithelial lesion or Malignancy COMMENTS: Specimen sent to [facility] in [place], [place] on 12/13/13 by [id number] at 1421. Results will be reported separately. A. Ectocervical/Endocervical Specimen Adequacy: Satisfactory of evaluation Transformation zone component identified Patient Information: HPV: High risk HPV DNA testing regardless of pap results. Actual Specimen Date: 12/12/13 Last Menstrual Date: 08/13/13 Spec Date if unknown: unknown ?: Y Signed (signature on file) ANDREAS Ramon (ASCP) 12/13 1426 This Pap test was evaluated with the assistance of the Cluster LabsPrep Test Imaging System. Due to cytologic findings at the oracle manager microscope, comprehensive manual rescreening by a Pack Master may be required. The Pap Smear is a screening test designed to aid in the detection of premalignant and malignant conditions of the uterine cervix. It is not a diagnostic procedure and should not be used as the sole means of detecting cervical cancer. Both false- positive and false- negative reports do occur. Depending on your risk status, a Pap smear shoudl be obtained and evaluated every 1-3 years. END OF REPORT * ML=Testing performed at Main Lab DEPARTMENT OF PATHOLOGY, [facility] [employer] [place] [address] Julio Wood M.D. Director [facility] # [id number] 36 RUN DATE: 12/15/13 [facility] LAB LIVE PAGE 1 RUN TIME: 1426 [facility] [employer] [place], [place] [address] Specimen Inquiry Name: CRISTINE CRUZ : [address]: Linda Rabago NP Acct: [id number] Unit: [id number] AGE: 28 Location: [facility] Re12/12/13 SEX: F Status: REG REF SPEC: [id number] DAVIE: 12/12/131244 EMETERIO DR: Linda Rabago NP REQ: [id number] RECD: 12/12/13 STATUS: COMP _ SOURCE: ABY SPDESC: ORDERED: GC/Chlam RNA QUERIES: Medent Number [id number] Procedure Result Verified Site Chlamydia Trachomatis RNA Final 12/15/13- 1426 ML NEGATIVE for Chlamydia trachomatis rRNA GC (N. gonorrhoeae) RNA Final 12/15/13- 1419 ML NEGATIVE for Neisseria gonorrhoeae rRNA A negative result does not preclude the presence of a C. trachomatis or N. gonorrhoeae infection because results are dependent on adequate specimen collection, absence of inhibitors, and sufficient rRNA to be detected. Test results may be affected by improper specimen collection, improper storage, technical error, or specimen mixup. Limitations of the Procedure: The Aptima Combo 2 Assay is not intended for the evaluation of suspected sexual abuse or for other medico-legal indications. For those patients for whom a false positive result may have adverse psychosocial impact, the [facility] recommends retesting by a method using an alternate technology. Therapeutic failure or success cannot be determined with the Aptima Combo 2 Assay since nucleic acid may persist following appropriate antimicrobial therapy. Results from the Aptima Combo 2 Assay should be interpreted in conjunction with other laboratory and clinical data available to the clinican. CONTINUED ON NEXT PAGE * ML=Testing performed at Main Lab DEPARTMENT OF PATHOLOGY, [facility] [employer] [place] [address] Julio Wood M.D. Director CLIA # [id number] RUN DATE: 12/15/13 [facility] LAB LIVE PAGE 2 RUN TIME: 1426 [facility] [employer] [place], [place] [address] Specimen Inquiry Patient: BELKISCRISTINE [id number] (Continued) Specimen: [id number] Collected: 12/12/13-1243 Received: 12/12/13-497 (Continued) Procedure Result Verified Site GC (N. gonorrhoeae) RNA Final (continued) 12/15/13- 1419 Performance characteristics for detecting C. trachomatis and N. gonorrhoeae are derived from high prevalence populations. Positive results in low prevalence populations should be interpreted carefully with the understanding that the likelihood of a false positive may be higher than a true positive. END OF REPORT * ML=Testing performed at Main Lab DEPARTMENT OF PATHOLOGY, [facility] [employer] [place], [place] [address] Julio Wood M.D. Director [facility] # [id number] RESULT: Ectocervical/Endocervical 38 Positive for one or more of the following Other High Risk HPV types: 31, 33, 35, 39, 45, 51, 52, 56, 58, 59, 66, and 68 Test Performed by: [address] [address] Quality Control Checker: Segun Montana M.D. 39 RUN DATE: 12/14/13 [facility] LAB LIVE PAGE 1 RUN TIME: 10[address] [facility] [employer] [place], [place] [address] Specimen Inquiry Name: CRISTINE CRUZ : [address]: Linda Rabago NP Acct: [id number] Unit: [id number] AGE: 28 Location: [facility] Re12/12/13 SEX: F Status: REG REF SPEC: [id number] DAVIE: 12/12/13-[address]: Linda Rabago NP REQ: [id number] RECD: 12/12/13-1550 STATUS: COMP _ SOURCE: URINE SPDESC: ORDERED: Urine Culture QUERIES: Medent Number [id number] Urine Source: Random Procedure Result Verified Site Urine Culture Final 12/14/13- 1053 ML Organism 1 NORMAL AMIRA [place] Count 1-10,000 (Few) CFU/ML END OF REPORT * ML=Testing performed at Main Lab DEPARTMENT OF PATHOLOGY, [address] [place] [address] Julio Wood M.D. Director [facility] # [id number] Procedures Date CPT Code Description Status 06/10/2017 93361 Echography Uterus Limited Completed 06/08/2017 02206 Non-Stress Test Completed 04/26/2017 96317 Echography Uterus Limited Completed 04/26/2017 79240 Non-Stress Test Completed 03/31/2017 48550 Non-Stress Test Completed 07/10/2014 91151 Delivery Only Completed 06/22/2014 96365 Non-Stress Test Completed 12/28/2013 02733 OB Ultrasound First Trimester Completed 02/09/2003 78359 Delivery Routine Completed Encounters Type Date Location Provider CPT E/M Dx Office Visit 06/08/2017 [place] [address] O36.8131 8:11a Office Visit 04/26/2017 Delivery Woo Adams, [address] O34.32 8:09a M.DEnedelia Office Visit 03/31/2017 [place] [address] R10.12 7:00p Hospital O09.93 Office Visit 06/22/2014 11:01a [place] [address] 655.70 Office Visit 12/28/2013 10:30a [facility] [place] [address] V22.1 V04.81 V22.1 Office Visit 12/14/2013 9:00a [facility] Woo Adams M.D. 94359 V22.1 647.63 V22.1 Office Visit 12/12/2013 11:30a [facility] Linda Rabago, ARACELI [address] V22.1 V22.1 V76.2 Plan of Care Future Appointment(s):06/28/2017 9:30 am - Razia Chen MD at [facility] O R007/06 11:40 am - Brenda Terry LM at [facility]08/02/2017 2:00 pm - Alida Medeiros MD at [facility]06/28/2017 9:30 am - Alida Medeiros MD at [facility] O R
[2017-06-28] MEDS ORDERED: Sodium Citrate/Citric Acid* 15 ML UDC ONE (08:58)
[2017-06-28] MEDS ORDERED: ceFAZolin 2 GM in NS 0.9% 100 ml IVPB ONE (09:00)
[2017-06-28] MEDS ORDERED: OXYTOCIN* 10 UNITS/ML 1 ML VIAL ONE (10:10)
[2017-06-28] MEDS ORDERED: Bupivacaine-MPF SPINAL* 7.5 MG/2 ML AMP ONE (10:10)
[2017-06-28] MEDS ORDERED: Ondansetron INJ* 2 MG/ML VIAL ONE (10:10)
[2017-06-28] MEDS ORDERED: Lidocaine 2% PF * 5 ML VIAL ONE (10:10)
[2017-06-28] MEDS ORDERED: Ketorolac INJ* 30 MG/ML 1 ML VIAL ONE (10:10)
[2017-06-28] MEDS ORDERED: Midazolam* 1 MG/ML 2 ML VIAL (2 MG) ONE (10:11)
[2017-06-28] MEDS ORDERED: HYDROmorphone INJ* 1 MG/ML CARPUJECT SYRINGE IV PRN (11:02)
[2017-06-28] MEDS ORDERED: DiMENhydriNATE IV* 50 MG/ML VIAL IV PUSH PRN (11:02)
[2017-06-28] MEDS ORDERED: oxyCODONE/Acetamin 5/325 MG* TAB PO PRN ×2 (11:02→12:21)
[2017-06-28] MEDS ORDERED: oxyCODONE/Acetamin 5/325 MG* TAB ONE (11:57)
[2017-06-28] MEDS ORDERED: HYDROmorphone INJ* 2 MG/ML CARPUJECT SYRINGE ONE (11:57)
[2017-06-28] MEDS: Ketorolac INJ* 30 MG/ML 1 ML VIAL IV PUSH SCH ×3 (12:00→23:42)
[2017-06-28] MEDS ORDERED: Witch Hazel PAD* JAR TOPICAL PRN (12:21)
[2017-06-28] MEDS ORDERED: Zolpidem TAB* 5 MG PO PRN (12:21)
[2017-06-28] MEDS ORDERED: Glycerin ADULT SUPP PR PRN (12:21)
[2017-06-28] MEDS ORDERED: Acetaminophen TAB* 325 MG PO PRN (12:21)
[2017-06-28] MEDS ORDERED: Dibucaine 1% 28.35 GM TUBE PR PRN (12:21)
[2017-06-28] MEDS: Simethicone TAB* 80 MG TAB.CHEW PO SCH ×3 (15:34→20:21)
[2017-06-28] MEDS: Docusate CAP* 100 MG PO SCH ×2 (16:22→20:21)
[2017-06-28] MEDS: oxyCODONE/Acetamin 5/325 MG* TAB PO PRN ×2 (16:23→20:21)
--- NOTE | 2017-06-29 00:02 | OP ---
DATE OF OPERATION: 06/28/17 - ROOM #114 DATE OF : 81 SURGEON: Alida Medeiros MD CREDIT VERIFICATION CLERK: Dr. Chen and Susanna Garcia CNM PRE-OP DIAGNOSIS: Intrauterine gestation at 39 weeks' gestational age, prior section x2. Desires permanent sterilization. POST-OP DIAGNOSIS: Intrauterine gestation at 39 weeks' gestational age, prior section x2. Desires permanent sterilization. OPERATIVE PROCEDURE: Repeat lower transverse section and bilateral tubal ligation. ANESTHESIA: Spinal. ESTIMATED BLOOD LOSS: 700 mL. FLUIDS: Crystalloid. DRAINS: Hale catheter. SPECIMEN: Tubes and placenta. COUNTS: All correct. FINDINGS: Female infant. Apgars 8 and 9. Weight 8 pounds 5 ounces. Normal- appearing placenta. Normal-appearing uterus, ovaries, and tubes. One small adhesion of omentum to the left ovary and significant scarring of the fascial layer. DESCRIPTION OF PROCEDURE: After informed consent, the patient was taken to the operating room where she was given spinal anesthesia that was found to be adequate. A Hale catheter was introduced into her bladder and SCDs were placed on her legs. She was prepped and draped in the dorsal supine position with a leftward tilt. A time-out was performed. A Pfannenstiel skin incision was made with a scalpel and carried down to the underlying layer of fascia with the scalpel. The fascia was incised on either side of the midline and the fascial incision extended laterally with the Lu scissors. The inferior edge of the fascial incision was grasped with Mohsen clamps, tented up, and dissected down with a combination of sharp and blunt dissection. Then, the inferior edge of the fascial incision was grasped with Mohsen clamps, tented up, and dissected down with sharp dissection. The tissue between the rectus muscles was incised with a scalpel and the peritoneum was then entered bluntly. The peritoneal incision was extended laterally with blunt pressure. The bladder blade was inserted and a bladder flap was created in the vesicouterine peritoneum with a Metzenbaum scissors. The bladder blade was reinserted and the transverse incision was made in the lower uterine segment with the scalpel. The uterine incision was extended superiorly and inferiorly with blunt pressure. The infant 's head was then delivered with fundal pressure followed by the shoulders and the rest of the body. After 30 seconds, the cord was milked towards the body, then clamped x2 and cut. The baby was handed to the sheet metal journeyman. Cord blood was collected, the placenta then delivered with gentle cord traction and fundal massage. The uterus was exteriorized and cleared of clots and debris. The uterine incision was then closed with 0 Vicryl in a running locked fashion with a second layer of suture imbricating the first. The abdomen was irrigated. Attention was turned to the tubes. The right tube was clamped with Rolanda clamps x2 and double suture ligated with 0 plain. Metzenbaum were then used to remove the distal portion of the tube. Good hemostasis was noted. In regards to the left tube, the fimbria was adhesed to the ovary, so the mesosalpinx was incised and 0 plain was used to double suture ligate both the proximal and distal ends of the tubal portion. The tubal portion was then removed with the Metzenbaum scissors and good hemostasis was noted. The uterus was placed back into the abdominal cavity. The incision was inspected and good hemostasis was noted. The tubal sites were then inspected once again and good hemostasis was noted and the sutures were in place. The peritoneum was then closed with 3-0 Vicryl in a running unlocked fashion. Good hemostasis was noted in the muscle layer with use of Bovie cautery. The fascia was then closed with 0 Vicryl in a running unlocked fashion and the skin was closed with 4-0 Monocryl in a running subcuticular fashion. The incision was cleaned and dressed. The patient was moved to the stretcher and taken to the recovery room in stable condition. [id number]/[facility] #: [id number] [facility] HOSPITAL[facility]esham
[2017-06-29] MEDS: oxyCODONE/Acetamin 5/325 MG* TAB PO PRN ×5 (00:38→20:07)
[2017-06-29] MEDS: Ketorolac INJ* 30 MG/ML 1 ML VIAL IV PUSH SCH (05:24)
[2017-06-29 08:02] LABS: ABS Basophils 0 10^3/ul (0-0.2); ABS Eosinophils 0 10^3/ul (0-0.6); ABS Lymphocytes 1.3 10^3/ul (1.0-4.8); ABS Monocytes 0.7 10^3/ul (0-0.8); ABS Neutrophils 9.2 10^3/ul (1.5-7.7); ABS Nucleated RBC 0 10^3/ul; Eosinophil % 0.4 % (0-6); Hematocrit 32 % (35-47); Hemoglobin 10.7 g/dl (12.0-16.0); Lymphocyte % 11.7 % (25-47); Mean Corpuscular HGB Conc 34 g/dl (31-36); Mean Corpuscular Hemoglobin 29 pg (27-31); Mean Corpuscular Volume 85 fL (80-97); Mean Platelet Volume 8.8 um3 (7.4-10.4); Nucleated Red Blood Cells % 0; Platelet Count 159 10^3/ul (150-450); Red Blood Count 3.76 10^6/ul (4.0-5.4); Red Cell Distribution Width 15 % (10.5-15); White Blood Count 11.3 10^3/ul (3.5-10.8)
[2017-06-29] MEDS ORDERED: Ferrous Gluconate TAB* 324 MG TAB PO SCH (09:00)
[2017-06-29] MEDS: Simethicone TAB* 80 MG TAB.CHEW PO SCH ×4 (09:46→20:07)
[2017-06-29] MEDS: Docusate CAP* 100 MG PO SCH ×3 (09:46→20:06)
[2017-06-29] MEDS: Ibuprofen TAB* 600 MG PO PRN ×3 (12:35→23:21)
[2017-06-30] MEDS: oxyCODONE/Acetamin 5/325 MG* TAB PO PRN ×5 (00:44→20:07)
[2017-06-30] MEDS: Ibuprofen TAB* 600 MG PO PRN ×3 (06:27→20:07)
[2017-06-30] MEDS: Simethicone TAB* 80 MG TAB.CHEW PO SCH ×4 (08:52→20:07)
[2017-06-30] MEDS: Docusate CAP* 100 MG PO SCH ×3 (08:52→20:07)
[2017-07-01] MEDS: oxyCODONE/Acetamin 5/325 MG* TAB PO PRN ×4 (00:08→13:02)
[2017-07-01] MEDS: Ibuprofen TAB* 600 MG PO PRN ×2 (04:23→13:03)
[2017-07-01] MEDS: Docusate CAP* 100 MG PO SCH (07:36)
[2017-07-01] MEDS: Simethicone TAB* 80 MG TAB.CHEW PO SCH ×2 (07:36→12:30)
[2017-07-01 08:24] VITALS: BP 108/56
== END 2017-07-01 13:18 | disposition home or self-care (01) | DRG 540 ==
LOC: MCHOB 07:43
PROVIDERS: ADMIT Obstetrics & Gynecology; ATTEND Obstetrics & Gynecology
PROC: 4A1HXCZ Monitoring of Products of Conception, Cardiac Rate, External Approach (ICD-10-PCS; 2017-06-28)
PROC: 0UB70ZZ Excision of Bilateral Fallopian Tubes, Open Approach (ICD-10-PCS; 2017-06-28)
PROC: 10D00Z1 Extraction of Products of Conception, Low, Open Approach (ICD-10-PCS; principal; 2017-06-28 10:13)
DX: O34.211 Maternal care for low transverse scar from previous cesarean delivery (principal); O99.344 Other mental disorders complicating childbirth; F41.9 Anxiety disorder, unspecified; F32.9 Major depressive disorder, single episode, unspecified; Z91.14 Patient's other noncompliance with medication regimen; Z30.2 Encounter for sterilization; Z88.1 Allergy status to other antibiotic agents; Z3A.39 39 weeks gestation of pregnancy; Z37.0 Single live birth
CPT/HCPCS: 36415; 85025; 86850; 86900; 86901; 88302; A9270-GY; J0690; J1170; J1885; J2250; J2405; J2590

== ENCOUNTER 2018-12-07 15:50 | Emergency (ER) | payer OTHER ==
--- NOTE | 2018-12-07 19:09 | ED ---
Throat Pain/Nasal Congestion - HPI Summary HPI Summary: Patient is a 33-year-old female who presents emergency department for right- sided dental pain for several weeks. Patient states she is currently on day 5 of clindamycin and ibuprofen prescribed by [facility]. Patient states her pain is getting worse. She notes she has an appointment with [facility] in December. Patient notes she had a fever yesterday. Symptoms are mild in severity. Touching affected area makes symptoms worse. Nothing makes symptoms better. - History of Current Complaint Chief Complaint: EDDentalPain Time Seen by Provider: 12/07/18 17:37 Hx Obtained From: Patient - Allergies/Home Medications Allergies/Adverse Reactions: Allergies Allergy/AdvReac Type Severity Reaction Status Date / Time erythromycin base Allergy Rash Verified 12/07/18 16:29 PMH/Surg Hx/FS Hx/Imm Hx Previously Healthy: Yes Endocrine/Hematology History: Denies: Hx Anticoagulant Therapy, Hx Blood Disorders, Hx Diabetes, Hx Thyroid Disease, Hx Unexplained Bleeding Cardiovascular History: Denies: Hx Hypertension Respiratory History: Denies: Hx Asthma, Hx Chronic Obstructive Pulmonary Disease (COPD) GI History: Denies: Hx Ulcer History: Denies: Hx Renal Disease Psychiatric History: Reports: Hx Anxiety - severe,not taking meds,sees TCMHD, Hx Depression - no meds, Hx Community Mental Health Tx - TCMH - Not currently, Other Psychiatric Issues/Disorders - HX Mental health issues Denies: Hx Attention Deficit Hyperactivity Disorder, Hx Eating Disorder, Hx Panic Disorder, Hx Post Traumatic Stress Disorder, Hx Inpatient Treatment, Hx Schizophrenia, Hx Bipolar Disorder, Hx Suicide Attempt, Hx of Violent Episodes Against Others, Hx Substance Abuse - Surgical History Surgery Procedure, Year, and Place: - Immunization History Date of Tetanus Vaccine: not up to date Infectious Disease History: No Infectious Disease History: Denies: Hx Clostridium Difficile, Hx Hepatitis, Hx Human Immunodeficiency Virus (HIV), Hx of Known/Suspected MRSA, Hx Shingles, Hx Tuberculosis, Hx Known/ Suspected VRE, Hx Known/Suspected VRSA, History Other Infectious Disease, Traveled Outside the [place] in Last 30 Days - Family History Known Family History: Positive: None, Other - migraines Negative: Cardiac Disease Family History: R & n/C - Social History Occupation: Unemployed Lives: With Family Alcohol Use: None Hx Substance Use: Yes Substance Use Type: Reports: None Substance Use Comment - Amount & Last Used: OXYCODONE RX Hx Tobacco Use: Yes Smoking Status (MU): Light Every Day Tobacco Smoker Type: Cigarettes Amount Used/How Often: 1-2 cigarettes/day Length of Time of Smoking/Using Tobacco: years Have You Smoked in the Last Year: Yes Review of Systems Positive: Fever Positive: Dental Pain Gastrointestinal: Negative Skin: Negative Neurological: Negative All Other Systems Reviewed And Are Negative: Yes Physical Exam Triage Information Reviewed: Yes Vital Signs On Initial Exam: Initial Vitals Temp Pulse Resp BP Pulse Ox 98.3 F 71 16 154/96 100 12/07/18 16:25 12/07/18 16:25 12/07/18 16:25 12/07/18 16:25 12/07/18 16:25 Vital Signs Reviewed: Yes Appearance: Positive: Well-Appearing - Pt. sitting on side of bed in NAD. Talkative. Skin: Positive: Warm, Dry Head/Face: Positive: Normal Head/Face Inspection Eyes: Positive: Normal, EOMI, RENEA ENT: Positive: TMs normal, Other - Pain to right bottom molar. Filling noted. No drainable abscess. No trismus. No facial edema. Neck: Positive: Supple, Nontender, No Lymphadenopathy Musculoskeletal: Positive: Normal, Strength/ROM Intact Neurological: Positive: Normal, CN Intact II-III Psychiatric: Positive: Affect/Mood Appropriate Diagnostics - Vital Signs Vital Signs Temp Pulse Resp BP Pulse Ox 12/07/18 16:25 98.3 F 71 16 154/96 100 - Laboratory Lab Statement: Any lab studies that have been ordered have been reviewed, and results considered in the medical decision making process. EENT Course/Dx - Course Course Of Treatment: Patient presenting with complaints of ongoing dental pain. She is afebrile and well-appearing. Patient upset with her wait time. Patient concerned she needs stronger pain medication that ibuprofen. Discussed tramadol with patient and she states that she is breast feeding. Patient became upset and asked to speak to an attending. Patient seen by Dr. Tong. ELECTRIC BLANKET WIRER reviewed no red flags noted. Clindamycin dose increased and a small prescription for hydrocodone prescribed by Dr. oTng. Patient to call her dentist tomorrow for close follow-up. Return to the ER symptoms change or worsen. - Diagnoses Provider Diagnoses: Dentalgia Discharge ED - Sign-Out/Discharge Documenting (check all that apply): Patient Departure Patient Received Moderate/Deep Sedation with Procedure: No - Discharge Plan Condition: Stable Disposition: HOME Prescriptions: Clindamycin Cap(NF) [Clindamycin Cap 300 mg Cap(NF)] 300 mg PO Q6H #10 cap HYDROcodone/ACETAMIN 5-325 MG* [Matthews 5-325 TAB*] 1 tab PO Q6H PRN #12 tab MDD 4 PRN Reason: Pain - Severe Ibuprofen TAB* [Motrin TAB* 600 MG] 600 mg PO Q8H PRN #30 tab PRN Reason: Pain - Mild Patient Education Materials: Dental Abscess (ED) Referrals: [facility] [Outside] - As Soon As Possible Additional Instructions: We have given you instructions about dental abscess, but we did not diagnose you with that tonight, but this will advise you of precautions and care for your tooth that is erupting, painful and appears infected. We have left a message with [facility] that Dr. Ferraro has requested sooner follow up for your dental pain. You need to continue the Clindamycin as directed, increasing the dose to 300mg four times a day for 10 full days. Additional clindamycin has been sent to your pharmacy, and we gave you an additional dose while in the ER tonight You were given hydrocodone /acetaminophen 5/325mg 2 tabs while you were in the ER at 7:30pm. This can cause all of the narcotic side effects in your child including central nervous system and respiratory suppression, so you cannot breast feed your child without serious side effects while taking this medication. Dr. Ferraro recommends that you will need to "pump and dump", meaning pump your breasts for your comfort and to keep the milk flowing, but discard the milk down the sink (not feed your child the milk), that is, "dump" the milk. The ER can prescribe only 3 days of narcotics for your acute pain. You may try a primary care provider who may prescribe more narcotic pain medication for you if needed. We have given you the number of the [facility] so that you may have a "bridge" for care if needed until you see a dentist. We have advised you that we do not do dental blocks in the ER, that we do not extract teeth, and that we do not have panorex dental xrays in the ER. Please return to the ER if you have any new or worsening symptoms, including but not limited to fever, facial swelling on one side, redness of your face. - Billing Disposition and Condition Condition: STABLE Disposition: Home
--- NOTE | 2018-12-07 19:23 | PN ---
Progress Note - Progress Note Date of Service: 12/07/18 - 1899, Pt seen at request of charge nurse and nursing warehouse shipping supervisor due to upset about her care. Note: Pt is a 33 yo pt who c/o severe right lower dental pain for several days. Pt states nothing helps the pain, not a shot of Toradol given yesterday at [facility] , not etodolac, not aspirin placed on the tooth ground up or orally. Pt has been on antibiotic prior to yesterday when [facility] started pt on Clindamycin 300mg po tid. Pt c/o severe dental pain and states that it causes headaches and that it radiates to her neck. No fever. No trismus, no facial redness or swelling ( although pt states it feels swollen). Pt has a dental appt with [facility], but it is not until the "middle of next month". She doesn't have the date written down with her in the ED. Pt has tried to get in sooner and states that is the soonest she could get. Pt has had prior dental work and extractions. 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 Pt's I- stop was checked and pt has no recent narcotic Rx's. PE: Pt alert, upset, severe pain distress, well appearing. Eyes, Conjunctiva clear, pupils midpoint, EOMI. Head: normal appearance, atraumatic. No facial swelling. No facial redness. ENT: Pharynx clear. Right lower wisdom tooth, erupting, with evidence of caries , no gum swelling, no drainage. Neck: supple, right ant cervical lymphadenopathy, shotty, trachea midline, no JVD. Cor S1S2 Lungs clear, resps unlabored. Extremities: no deformities. Neuro: Alert, Ox 3, moves all extremities well, no focal deficit, ambulatory without assistance without limp Psychological: in pain, upset, calms with further medical care and treatment DX: dental pain, erupting wisdom tooth, dental caries Plan: Parnell 5/325 #2 po given in ED with RX 1 po q 6 hrs prn x 3 days. Ibuprofen 600mg po q 8 hrs prn Definite F/U with dentist LOC. Increase clindamycin 300mg po qid. 1950: Pt ambulatory, cooperative, calm, awaiting ED medications. Given DC instructions. Questions answered to the best of my ability. Pt's ride is here in the ED for her to go home.
[2018-12-07] MEDS ORDERED: Clindamycin CAP* 150 MG PO ONE (19:49)
[2018-12-07] MEDS ORDERED: HYDROcodone/ACETAMIN 5-325 MG* 1 TAB PO ONE (19:52)
[2018-12-07 20:04] VITALS: BP 116/79
== END 2018-12-07 20:08 | disposition home or self-care (01) ==
LOC: ED 15:50
DX: K08.89 Other specified disorders of teeth and supporting structures (principal); F41.9 Anxiety disorder, unspecified; F17.210 Nicotine dependence, cigarettes, uncomplicated; Z88.1 Allergy status to other antibiotic agents
CPT/HCPCS: 99283; A9270-GY

== ENCOUNTER 2018-12-23 13:07 | Emergency (ER) | payer OTHER ==
[2018-12-23] MEDS ORDERED: Lidocaine 2% VISCOUS* 15 ML UDC SWISH SPIT ONE (13:33)
[2018-12-23] MEDS ORDERED: Bupivacaine 0.5% SDV PF* 30ML VIAL INJ ONE (13:33)
[2018-12-23] MEDS ORDERED: Lidocaine 1% MPF ** 5 ML VIAL INJ ONE (13:52)
[2018-12-23] MEDS ORDERED: Ibuprofen TAB* 600 MG PO ONE (14:21)
[2018-12-23] MEDS ORDERED: Ketorolac *IM* INJ* 60 MG/2 ML VIAL IM ONE (14:41)
[2018-12-23 15:17] VITALS: BP 000/00
--- NOTE | 2018-12-24 06:21 | ED ---
Throat Pain/Nasal Congestion - HPI Summary HPI Summary: This patient is a 33-year-old female presenting to the ED with chief complaint of dental pain. Patient has been seen multiple times at [facility] [place]. She states she has a dental appointment on Wednesday to have all of her teeth extracted. She arrives today with a request for a lidocaine injection as this has worked for her in the past. She states medications do not work for her and she is not requesting this at this time. She denies any fevers, sweats, chills. Pain is most notably to the right upper teeth over #3 and #4 as well as bottom tooth #31. Symptoms are improved with persistent rinsing. She has been taking Tylenol and ibuprofen without relief. She has not used any over-the -counter Orajel or other topicals. Denies any dysphagia or odynophagia. Denies any difficulty with breathing. Denies any draining from any of the teeth. History of gingivitis, cavities, broken teeth. - History of Current Complaint Chief Complaint: EDDentalPain Time Seen by Provider: 12/23/18 13:13 Hx Obtained From: Patient Onset/Duration: Sudden Onset Severity: Moderate Associated Signs And Symptoms: Positive: Negative - Epiglottits Risk Factors Epiglottis Risk Factors: Negative - Allergies/Home Medications Allergies/Adverse Reactions: Allergies Allergy/AdvReac Type Severity Reaction Status Date / Time erythromycin base Allergy Rash Verified 12/07/18 16:29 PMH/Surg Hx/FS Hx/Imm Hx Previously Healthy: Yes Endocrine/Hematology History: Denies: Hx Anticoagulant Therapy, Hx Blood Disorders, Hx Diabetes, Hx Thyroid Disease, Hx Unexplained Bleeding Cardiovascular History: Denies: Hx Hypertension Respiratory History: Denies: Hx Asthma, Hx Chronic Obstructive Pulmonary Disease (COPD) GI History: Denies: Hx Ulcer History: Denies: Hx Renal Disease Psychiatric History: Reports: Hx Anxiety - severe,not taking meds,sees TCMHD, Hx Depression - no meds, Hx Community Mental Health Tx - TCMH - Not currently, Other Psychiatric Issues/Disorders - HX Mental health issues Denies: Hx Attention Deficit Hyperactivity Disorder, Hx Eating Disorder, Hx Panic Disorder, Hx Post Traumatic Stress Disorder, Hx Inpatient Treatment, Hx Schizophrenia, Hx Bipolar Disorder, Hx Suicide Attempt, Hx of Violent Episodes Against Others, Hx Substance Abuse - Surgical History Surgery Procedure, Year, and Place: - Immunization History Date of Tetanus Vaccine: not up to date Hx Pertussis Vaccination: No Immunizations Up to Date: Yes Infectious Disease History: No Infectious Disease History: Denies: Hx Clostridium Difficile, Hx Hepatitis, Hx Human Immunodeficiency Virus (HIV), Hx of Known/Suspected MRSA, Hx Shingles, Hx Tuberculosis, Hx Known/ Suspected VRE, Hx Known/Suspected VRSA, History Other Infectious Disease, Traveled Outside the [place] in Last 30 Days - Family History Known Family History: Positive: None, Other - migraines Negative: Cardiac Disease Family History: R & n/C - Social History Occupation: Unemployed Lives: With Family Alcohol Use: None Hx Substance Use: Yes Substance Use Type: Reports: None Substance Use Comment - Amount & Last Used: OXYCODONE RX Hx Tobacco Use: Yes Smoking Status (MU): Light Every Day Tobacco Smoker Type: Cigarettes Amount Used/How Often: 1-2 cigarettes/day Length of Time of Smoking/Using Tobacco: years Have You Smoked in the Last Year: Yes Review of Systems Constitutional: Negative Negative: Fever, Chills, Fatigue, Skin Diaphoresis Positive: Dental Pain Negative: Palpitations, Chest Pain Negative: Shortness Of Breath, Cough Negative: Abdominal Pain Genitourinary: Negative Positive: no symptoms reported, see HPI Negative: Arthralgia, Myalgia Neurological: Negative All Other Systems Reviewed And Are Negative: Yes Physical Exam Triage Information Reviewed: Yes Vital Signs On Initial Exam: Initial Vitals Temp Pulse Resp BP Pulse Ox 97.9 F 77 16 141/96 98 12/23/18 13:09 12/23/18 13:09 12/23/18 13:09 12/23/18 13:09 12/23/18 13:09 Vital Signs Reviewed: Yes Appearance: Positive: Well-Appearing, Well-Nourished, Pain Distress Skin: Positive: Skin Color Reflects Adequate Perfusion Head/Face: Positive: Normal Head/Face Inspection Eyes: Positive: EOMI, RENEA, Conjunctiva Clear Dental: Positive: Percussion Tenderness @ - right upper and lower -worse to tooth # 3, Gross Decay/Caries @ - throughout Neck: Positive: Supple, No Lymphadenopathy Respiratory/Lung Sounds: Positive: Clear to Auscultation, Breath Sounds Present Cardiovascular: Positive: RRR, Pulses are Symmetrical in both Upper and Lower Extremities Musculoskeletal: Positive: Strength/ROM Intact Neurological: Positive: Speech Normal Psychiatric: Positive: Affect/Mood Appropriate AVPU Assessment: Alert Procedures - Sedation Patient Received Moderate/Deep Sedation with Procedure: No Diagnostics - Vital Signs Vital Signs Temp Pulse Resp BP Pulse Ox 12/23/18 15:16 0 F 0 0 000/00 0 12/23/18 13:09 97.9 F 77 16 141/96 98 - Laboratory Lab Statement: Any lab studies that have been ordered have been reviewed, and results considered in the medical decision making process. EENT Course/Dx - Course Course Of Treatment: Patient is evaluated for diffuse dental pain, worse to the right side over tooth #3, #4 and #31. Patient is requesting a lidocaine injection. I have asked Dr. Mane who will perform dental block. Dental block obtained using 4ml bupivacaine and lidocaine with good effect. Pt states significant relief. She was also given toradol and rx for this. Will f/u with dentist on wednesday as scheduled. - Diagnoses Provider Diagnoses: Pain, dental Discharge ED - Sign-Out/Discharge Documenting (check all that apply): Patient Departure - Discharge Plan Condition: Stable Disposition: HOME Prescriptions: Ketorolac TAB * [Toradol TAB *] 10 mg PO Q6H #16 tab Patient Education Materials: Toothache (ED) Referrals: Radha Cramer MD [Primary Care Provider] - Additional Instructions: Alcohol (rum) may help with pain Over the counter clove, ambesol and orajel Toradol four times daily x 4 days Tylenol 650mg three times daily (on opposite schedule of toradol) Mouth rinses - Billing Disposition and Condition Condition: STABLE Disposition: Home
== END 2018-12-23 15:16 | disposition home or self-care (01) ==
LOC: ED 13:07
DX: K08.89 Other specified disorders of teeth and supporting structures (principal); F41.9 Anxiety disorder, unspecified; F32.9 Major depressive disorder, single episode, unspecified; F17.210 Nicotine dependence, cigarettes, uncomplicated; Z88.1 Allergy status to other antibiotic agents
CPT/HCPCS: 96372; 99282; J1885; J3490

== ENCOUNTER 2018-12-24 20:39 | Emergency (ER) | payer OTHER ==
--- NOTE | 2018-12-24 21:27 | ED ---
Throat Pain/Nasal Congestion - HPI Summary HPI Summary: Patient with history of multiple visits for chronic dental pain complains of recurring dental pain on upper and lower right side. Patient was seen here yesterday for same and given dental block. Patient here requesting same again. States she has appointment with dentist 2 days from now. Denies fever, purulent drainage from mouth, new trauma, sore throat, headache. - History of Current Complaint Chief Complaint: EDDentalPain Time Seen by Provider: 12/24/18 21:04 Hx Obtained From: Patient Onset/Duration: Gradual Onset, Lasting Weeks Severity: Moderate Associated Signs And Symptoms: Positive: Negative Cough: None - Allergies/Home Medications Allergies/Adverse Reactions: Allergies Allergy/AdvReac Type Severity Reaction Status Date / Time erythromycin base Allergy Rash Verified 12/24/18 20:45 PMH/Surg Hx/FS Hx/Imm Hx Endocrine/Hematology History: Denies: Hx Anticoagulant Therapy, Hx Blood Disorders, Hx Diabetes, Hx Thyroid Disease, Hx Unexplained Bleeding Cardiovascular History: Denies: Hx Hypertension Respiratory History: Denies: Hx Asthma, Hx Chronic Obstructive Pulmonary Disease (COPD) GI History: Denies: Hx Ulcer History: Denies: Hx Renal Disease Musculoskeletal History: Denies: Hx Gout Sensory History: Denies: Hx Eye Prosthesis Opthamlomology History: Denies: Hx Legally Blind EENT History: Denies: Hx Deafness Psychiatric History: Reports: Hx Anxiety - severe,not taking meds,sees TCMHD, Hx Depression - no meds, Hx Community Mental Health Tx - TCMH - Not currently, Other Psychiatric Issues/Disorders - HX Mental health issues Denies: Hx Attention Deficit Hyperactivity Disorder, Hx Eating Disorder, Hx Panic Disorder, Hx Post Traumatic Stress Disorder, Hx Inpatient Treatment, Hx Schizophrenia, Hx Bipolar Disorder, Hx Suicide Attempt, Hx of Violent Episodes Against Others, Hx Substance Abuse - Surgical History Surgery Procedure, Year, and Place: - Immunization History Date of Tetanus Vaccine: not up to date Infectious Disease History: No Infectious Disease History: Denies: Hx Clostridium Difficile, Hx Hepatitis, Hx Human Immunodeficiency Virus (HIV), Hx of Known/Suspected MRSA, Hx Shingles, Hx Tuberculosis, Hx Known/ Suspected VRE, Hx Known/Suspected VRSA, History Other Infectious Disease, Traveled Outside the [place] in Last 30 Days - Family History Known Family History: Positive: None, Other - migraines Negative: Cardiac Disease Family History: R & n/C - Social History Alcohol Use: None Hx Substance Use: Yes Substance Use Type: Reports: None Substance Use Comment - Amount & Last Used: OXYCODONE RX Hx Tobacco Use: Yes Smoking Status (MU): Light Every Day Tobacco Smoker Type: Cigarettes Amount Used/How Often: 1-2 cigarettes/day Length of Time of Smoking/Using Tobacco: years Have You Smoked in the Last Year: Yes Review of Systems Constitutional: Negative Eyes: Negative Positive: Dental Pain Cardiovascular: Negative Respiratory: Negative Gastrointestinal: Negative Genitourinary: Negative Musculoskeletal: Negative Skin: Negative Neurological: Negative Psychological: Normal All Other Systems Reviewed And Are Negative: Yes Physical Exam - Summary Physical Exam Summary: Multiple dental caries. No evidence of abscess, oral lesions, swelling. Triage Information Reviewed: Yes Vital Signs On Initial Exam: Initial Vitals Temp Pulse Resp BP Pulse Ox 97.9 F 66 15 135/88 98 12/24/18 20:43 12/24/18 20:43 12/24/18 20:43 12/24/18 20:43 12/24/18 20:43 Vital Signs Reviewed: Yes Appearance: Positive: Well-Appearing Skin: Positive: Warm Head/Face: Positive: Normal Head/Face Inspection Eyes: Positive: Normal ENT: Positive: Normal ENT inspection Dental: Positive: Gross Decay/Caries @. Negative: Abscess @ Neck: Positive: Supple Respiratory/Lung Sounds: Positive: Clear to Auscultation Cardiovascular: Positive: Normal Abdomen Description: Positive: Nontender Musculoskeletal: Positive: Normal Neurological: Positive: Normal Psychiatric: Positive: Normal AVPU Assessment: Alert - Ananda Coma Scale Best Eye Response: 4 - Spontaneous Best Motor Response: 6 - Obeys Commands Best Verbal Response: 5 - Oriented Coma Scale Total: 15 Procedures - Sedation Patient Received Moderate/Deep Sedation with Procedure: No Diagnostics - Vital Signs Vital Signs Temp Pulse Resp BP Pulse Ox 12/24/18 20:43 97.9 F 66 15 135/88 98 - Laboratory Lab Statement: Any lab studies that have been ordered have been reviewed, and results considered in the medical decision making process. EENT Course/Dx - Course Course Of Treatment: Patient with history of multiple visits for chronic dental pain complains of recurring dental pain on upper and lower right side. Patient was seen here yesterday for same and given dental block. Patient here requesting same again. States she has appointment with dentist 2 days from now. Denies fever, purulent drainage from mouth, new trauma, sore throat, headache. Vital signs within normal limits. Neither attending available at this time wishes to do dental block. This provided has no expanded dental block. pt recieved opiates for dental pain here 12/07. Here yesterday for same symptoms received dental block and toradol rx. States she was unable to fill Toradol Rx due to insurance issues. Wanted another dental block. Refused lidocaine gel. Patient then relented when she realized she was not going to get dental block or narcotics and asked for Toradol IM and lidocaine gel. Patient states she has appointment with dentist Wednesday. - Diagnoses Provider Diagnoses: Chronic dental pain Discharge ED - Sign-Out/Discharge Documenting (check all that apply): Patient Departure - Discharge Plan Condition: Stable Disposition: HOME Patient Education Materials: Toothache (ED) Referrals: Radha Cramer MD [Primary Care Provider] - Additional Instructions: Take Toradol as prescribed. You may also alternate Toradol with Tylenol 650 mg for added pain relief. Follow up with your dentist at your appointment on Wednesday. - Billing Disposition and Condition Condition: STABLE Disposition: Home
[2018-12-24] MEDS ORDERED: Acetaminophen TAB* 325 MG PO ONE (21:33)
[2018-12-24] MEDS ORDERED: Ketorolac TAB * 10 MG TAB PO ONE ×2 (21:33→22:49)
[2018-12-24] MEDS ORDERED: Ketorolac INJ* 30 MG/ML 1 ML VIAL IM ONE (22:07)
[2018-12-24] MEDS ORDERED: Lidocaine 2% VISCOUS* 15 ML UDC PO ONE (22:22)
[2018-12-24 23:02] VITALS: BP 131/77
== END 2018-12-24 22:55 | disposition home or self-care (01) ==
LOC: ED 20:39
DX: K08.89 Other specified disorders of teeth and supporting structures (principal); F41.9 Anxiety disorder, unspecified; F32.9 Major depressive disorder, single episode, unspecified; F17.210 Nicotine dependence, cigarettes, uncomplicated
CPT/HCPCS: 96372; 99283; A9270-GY; J1885